=== PATIENT | male | born 1955 | race Caucasian/White ===

== ENCOUNTER → 2019-06-09 | Outpatient (CLI) | payer MEDICARE ==
--- NOTE | 2019-06-09 14:24 | CT ---
EXAMINATION TYPE: CT shoulder RT wo con DATE OF EXAM: 06/09/2019 COMPARISON: None HISTORY: Right shoulder pain. CT DLP: 480 mGycm Automated exposure control for dose reduction was used. FINDINGS: Severe arthropathy of the glenohumeral joint. There is hypertrophic change of the AC joint. Distance remains within normal limits but there is small spurs extending along the inferior margin of the acro mium and clavicle. There does appear to be some mass effect upon the musculotendinous junction and te ndon of the supraspinatus muscle. There is increased soft tissue along the medial margin of the gleno humeral joint with an area of low attenuation which may represent bursal fluid collection measuring 2 .3 cm. Recommend follow-up MRI. No evidence of acute fracture or dislocation. Benign-appearing bone cyst in the humeral head likely s econdary to chronic arthropathy. Scapula is otherwise intact. Visualized lung harkins clear. Hypertrop hic changes of the vertebral column. IMPRESSION: 1. Severe glenohumeral joint arthropathy with complete loss of joint space and suspected loss of tommie cular cartilage. 2. There is a soft tissue density which may represent a fluid collection along the medial margin of t he glenohumeral joint. This could represent a bursal fluid collection and could be correlated with MR I. 3. Mild hypertrophic change of the AC joint does appear to result in some mass effect upon the supras pinatus tendon and muscle correlate for impingement symptoms.
== END | disposition home or self-care (01) ==
LOC: RADCTMAIN 12:34
PROVIDERS: ATTEND Orthopaedic Surgery Sports Medicine
DX: M19.011 Primary osteoarthritis, right shoulder (principal); I10 Essential (primary) hypertension; E11.9 Type 2 diabetes mellitus without complications; Z87.891 Personal history of nicotine dependence

== ENCOUNTER → 2019-08-09 | Outpatient (CLI) | payer MEDICARE, BC ==
--- NOTE | 2019-08-10 09:22 | ECHOF ---
Referral Reason:R94.31 Abnormal EKG MEASUREMENTS -------- HEIGHT: 175.3 cm WEIGHT: 89.8 kg BP: RVIDd: 3.3 cm (< 3.3) IVSd: 1.8 cm (0.6 - 1.1) LVIDd: 3.9 cm (3.9 - 5.3) LVPWd: 1.5 cm (0.6 - 1.1) IVSs: 2.2 cm LVIDs: 2.8 cm LVPWs: 2.1 cm LAESV Index (A-L): 33.17 ml/m Ao Diam: 3.4 cm (2.0 - 3.7) AV Cusp: 1.8 cm (1.5 - 2.6) LA Diam: 3.7 cm (2.7 - 3.8) MV EXCURSION: 21.518 mm (> 18.000) MV EF SLOPE: 122 mm/s (70 - 150) EPSS: 0.5 cm MV E Daljit: 0.53 m/s MV DecT: 231 ms MV A Daljit: 0.74 m/s MV E/A Ratio: 0.71 RAP: 5.00 mmHg RVSP: 32.45 mmHg FINDINGS -------- Sinus rhythm. This was a technically adequate study. The left ventricular size is normal. There is moderate concentric left ventricular hypertrophy. O verall left ventricular systolic function is low-normal with, an EF between 50 - 55 %. The diastoli c filling pattern is normal for the age of the patient 6.87. The right ventricle is normal in size. LA is midly dilated 29-33ml/m2. The right atrial size is normal. Interatrial and interventricular septum intact. The aortic valve is trileaflet and appears structurally normal. There is no evidence of aortic regu rgitation. The aortic pressure half-time by doppler is {AR PHT}. Mild mitral regurgitation is present. Mild tricuspid regurgitation present. There is borderline pulmonary artery hypertension. The righ t ventricular systolic pressure, as measured by Doppler, is 32.45mmHg. There is no pulmonic regurgitation present. The aortic root size is normal. Normal inferior vena cava with normal inspiratory collapse consistent with estimated right atrial pre ssure of 5 mmHg. There is no pericardial effusion. CONCLUSIONS -------- 1. Sinus rhythm. 2. This was a technically adequate study. 3. The left ventricular size is normal. 4. There is moderate concentric left ventricular hypertrophy. 5. Overall left ventricular systolic function is low-normal with, an EF between 50 - 55 %. 6. The diastolic filling pattern is normal for the age of the patient 6.87 7. The right ventricle is normal in size. 8. LA is midly dilated 29-33ml/m2. 9. The right atrial size is normal. 10. Interatrial and interventricular septum intact. 11. The aortic valve is trileaflet and appears structurally normal. 12. There is no evidence of aortic regurgitation. 13. The aortic pressure half-time by doppler is {AR PHT}. 14. Mild mitral regurgitation is present. 15. Mild tricuspid regurgitation present. 16. There is borderline pulmonary artery hypertension. 17. The right ventricular systolic pressure, as measured by Doppler, is 32.45mmHg. 18. There is no pulmonic regurgitation present. 19. The aortic root size is normal. 20. Normal inferior vena cava with normal inspiratory collapse consistent with estimated right atrial pressure of 5 mmHg. 21. There is no pericardial effusion. PILLOWCASE SEWER: Hillary Hernandez [facility]
== END | disposition home or self-care (01) ==
LOC: RADECHMAIN 14:40
PROVIDERS: ATTEND Nurse Practitioner Family
DX: I08.1 Rheumatic disorders of both mitral and tricuspid valves (principal); I27.21 Secondary pulmonary arterial hypertension
CPT/HCPCS: 93306

== ENCOUNTER 2019-08-17 11:00 | Inpatient (IN) | payer MEDICARE, BC ==
[2019-08-15 13:10] VITALS: BMI 28.9
[~2019-08-17 11:00] MED LIST: ACETAMINOPHEN TAB 500 MG TAB PO ONE; CLINDAMYCIN 900 MG in DEXTROSE 5% IN WATER 50 ML IVPB ONE; DEXAMETHASONE SOD PHOSPHATE 10 MG/ML 1 ML VIAL IV ONE; GABAPENTIN 300 MG CAP PO ONE; HYDROmorphone 0.5 MG/0.5 ML SYRINGE IVP PRN; MIDAZOLAM 2 MG/2 ML VIAL IV PRN; ONDANSETRON 4 MG/2 ML VIAL IVP ONE; TRANEXAMIC ACID 1,000 MG in SODIUM CHLORIDE 0.9% 100 ML IVPB ONE
[2019-08-17] MEDS ORDERED: diphenhydrAMINE 25 MG CAP PO PRN (13:03)
[2019-08-17] MEDS ORDERED: TEMAZEPAM 15 MG CAP PO PRN (13:03)
[2019-08-17] MEDS ORDERED: HYDROmorphone 0.5 MG/0.5 ML SYRINGE IVP PRN ×2 (13:03)
[2019-08-17] MEDS ORDERED: hydrOXYzine PAMOATE 25 MG CAP PO PRN (13:03)
[2019-08-17] MEDS ORDERED: ONDANSETRON 4 MG/2 ML VIAL IVP PRN (13:03)
[2019-08-17] MEDS ORDERED: METOCLOPRAMIDE 5 MG/ML 2 ML VIAL IVP PRN (13:03)
[2019-08-17] MEDS ORDERED: PROCHLORPERAZINE SUPPOSITORY 25 MG SUPP RECTAL PRN (13:03)
[2019-08-17] MEDS ORDERED: SENNOSIDES-DOCUSATE SODIUM 1 EACH TAB PO PRN (13:03)
[2019-08-17] MEDS ORDERED: HYDROcodone/APAP 7.5-325MG 1 EACH TAB PO PRN (13:07)
[2019-08-17] MEDS ORDERED: LIDOCAINE 1% 20 ML VIAL (10MG/ML) FOR IV START INTRADERMA ONE (14:03)
[2019-08-17] MEDS: LACTATED RINGERS 1,000 ML IV SCH ×2 (14:03→21:01)
[2019-08-17 14:20] LABS: Glucose,Whole Blood 115 mg/dL (75-99)
[2019-08-17] MEDS ORDERED: fentaNYL (PF) 50 MCG/ML 2 ML AMP IV ONE (14:23)
[2019-08-17] MEDS ORDERED: MIDAZOLAM 2 MG/2 ML VIAL IV ONE (14:23)
[2019-08-17] MEDS ORDERED: DEXAMETHASONE SOD PHOSPHATE 4 MG/ML 1 ML VIAL ONE (15:17)
[2019-08-17] MEDS ORDERED: ROPIVACAINE 5 MG/ML 30 ML VIAL ONE (15:17)
[2019-08-17] MEDS ORDERED: MIDAZOLAM 2 MG/2 ML VIAL ONE (15:17)
[2019-08-17] MEDS ORDERED: NEOSTIGMINE 1 MG/ML 10 ML VIAL ONE (15:17)
[2019-08-17] MEDS ORDERED: PROPOFOL 10 MG/ML 20 ML VIAL IV ONE (15:17)
[2019-08-17] MEDS ORDERED: ROCURONIUM BROMIDE 10 MG/ML 10 ML VIAL IV ONE (15:17)
[2019-08-17] MEDS ORDERED: GLYCOPYRROLATE 0.2 MG/ML 2 ML VIAL ONE (15:17)
[2019-08-17] MEDS ORDERED: ePHEDrine SULFATE/0.9% NACL/PF 50 MG/5 ML SYRINGE IV ONE (15:17)
[2019-08-17] MEDS ORDERED: SUCCINYLCHOLINE CHLORIDE 100 MG/5 ML SYR IV ONE (15:17)
[2019-08-17] MEDS ORDERED: fentaNYL (PF) 50 MCG/ML 2 ML AMP ONE (15:17)
[2019-08-17] MEDS ORDERED: LIDOCAINE 1% INJ 10MG/ML (20 ML MDV) ONE (15:17)
[2019-08-17] MEDS ORDERED: PHENYLEPHRINE-0.9% NACL SYG 1 MG/10 ML SYRINGE ONE (15:17)
[2019-08-17] MEDS ORDERED: SODIUM CHLORIDE 0.9% 100 ML with ceFAZolin 2,000 MG IV ONE ×2 (15:25)
[2019-08-17] MEDS ORDERED: LACTATED RINGERS 1,000 ML IV ONE (15:55)
[2019-08-17] MEDS ORDERED: VANCOMYCIN 1,000 MG VIAL MISCELLANE ONE ×2 (16:41→17:02)
[2019-08-17 18:00] LABS: Glucose,Whole Blood 173 mg/dL (75-99)
--- NOTE | 2019-08-17 18:23 | P.ANPRN ---
Procedure Note - Anesthesia - Nerve Block Performed Right Interscalene Single Time Out Performed: Yes Date of Procedure: 08/17/19 Procedure Start Time: 14:25 Procedure Stop Time: 14:34 Location of Patient: PreOp Indication: Acute Post-Operative Pain, Requested by Surgeon Specifically requested for management of pain by DrJuju: Elfego Tavarez Sedation Type: Sedate with meaningful contact maintained Preparation: Sterile Prep Position: Supine Catheter: None Needle Types: Pajunk Needle Gauge: 21 Ultrasound used to visualize needle placement: Yes Ultrasound used to observe medication spread: Yes Injectate: 0.5% Ropivacaine (see comment for volume) (20 cc + decadron 4mg) Blood Aspirated: No Pain Paresthesia on Injection Noted: No Resistance on Injection: Normal Image Stored and Saved: Yes Events: Uneventful and Well Tolerated
--- NOTE | 2019-08-17 18:51 | XR ---
EXAMINATION TYPE: XR shoulder limited RT DATE OF EXAM: 08/17/2019 COMPARISON: NONE HISTORY: Postop TECHNIQUE: Single view FINDINGS: There is a right shoulder prosthesis. Components are in anatomic position. IMPRESSION: There is some mild atelectasis at the right lung base. No complicating process seen of th e shoulder prosthesis..
[2019-08-17 21:49] LABS: Glucose,Whole Blood 179 mg/dL (75-99)
[2019-08-17] MEDS: PARoxetine 10 MG TAB PO SCH (22:48)
[2019-08-17] MEDS: DOXYCYCLINE 100 MG CAP PO SCH (22:48)
--- NOTE | 2019-08-18 | OP ---
OPERATIVE REPORT DATE OF PROCEDURE: 08/17/2019 SURGEON: Elfego Tavarez M.D. MIRROR POLISHER: Henry REYES. PREOP DIAGNOSIS: Right shoulder arthritis. POSTOP DIAGNOSIS: Right shoulder arthritis. OPERATION PERFORMED: Right total shoulder arthroplasty. ANESTHESIA: General endotracheal. ESTIMATED BLOOD LOSS: Was 300 mL. DRAINS: One deep drain. COMPLICATIONS: None apparent. DISPOSITION: Postanesthesia care unit. INDICATIONS: Mr. Rico is a very pleasant 64-year-old male with longstanding right shoulder pain. Workup including x-rays revealed advanced osteoarthrosis of the right shoulder. At this point, it was felt he has failed conservative management and he would like to proceed with operative intervention. The risks of procedure were discussed in detail. These risks include, but are not limited to risk of infection, nerve damage, bleeding, pain and instability in the shoulder, loosening of the implants and deep infection. There is also risk of deep vein thrombosis which could lead to fatal pulmonary embolism. The patient understood the risks. All his questions with regard to the procedure were answered to his satisfaction. Appropriate informed consent was obtained. DESCRIPTION OF PROCEDURE: The patient identified in preoperative holding area. Surgical sites marked by both the patient and myself. He was given 2 g of Ancef IV for prophylactic purposes. He was then transferred to the operative suite. He was placed supine on the operative table. General anesthetic was then administered, dosed per the anesthesia without apparent complication. Examination under anesthesia of the right shoulder was then performed. He had elevation 140 degrees. External rotation at the side was to 30 degrees. The patient was then placed into the beach chair position well-padded in preparation for surgery. Great care was taken to ensure the cervical spine is in neutral alignment well-padded maintained weight throughout the operative case. The care was also taken to ensure that his legs were appropriately padded as well. The patient's right upper extremity was then prepped and draped in usual sterile fashion. Standard surgical pause undertaken to ensure the we were operating the correct site and that appropriate preop antibiotics were given. All staff in the room were in agreement we proceeded. The acromion, AC joint, clavicle and coracoid were marked with a surgical pen. A planned incision starting at the level of the clavicle and extending distally over the deltopectoral interval approximately 1 cm lateral to the coracoid was marked with surgical pen. The incision was then made, with a 10 blade scalpel. Dissection carried down sharply to the deltoid fascia. The deltopectoral interval was identified at the level of the clavicle. A small band retractor was then placed onto the proximal deltoid. Then released the deltoid fascia on the lateral aspect of the cephalic vein. The vein was left in its bed medially. The cephalic vein was protected throughout the entire case. I then identified the clavipectoral fascia. Incised proximally at the level of the coracoacromial ligament. The coracoacromial ligament was then left intact. I then used my finger to spread the interval between the conjoined tendon and the subscapularis. I felt for the axillary nerve which was readily palpable. I then cleared the subacromial and subdeltoid spaces of bursal and scar tissue. I then utilized a Gil retractor to hold the deltoid and expose the humeral head. I then proceeded to release the subscapularis and the anterior inferior shoulder capsule. The rotator cuff was inspected. It was found to be intact. The rotator interval was then identified. The course of the biceps tendon was also identified. I then released the rotator interval. Release at the base of the coracoid and then out laterally. The subscapularis and capsule released intratendinously. The subscapularis and capsule release extended distally in a lazy-S fashion approximately 1 cm medial to the biceps tendon. I then continued to release the capsule along the inferior neck in a vertical fashion to about the 6 o'clock position. Great care was taken to ensure the capsule was always visualized. It was released to avoid injuring the axillary nerve. I then brought the [place] honing machine operator semiautomatic with the arm externally rotated and abducted. I continued to release the end capsule inferomedially to the 4 o'clock position. The inferior osteophytes were now removed as well. This was done with a rongeur. I then proceed with the preparation of the proximal humerus. I removed all the goat's cote osteophytes. I then removed the subchondral plate from the superior aspect of the humeral head utilizing a large rongeur. I then used the starting reamer to gain access to the humeral canal. This was approximately 1 cm medial to the rotator cuff insertion and 1 cm posterior to the bicipital groove. I then prepared the humeral canal with hand reaming. Started with a 6 mm reamer and progressed incrementally until firm resistance was encountered at 14 mm. The reamer handle was then left in place and then I utilized a humeral resection guide set at 30 degrees of retrotorsion. The cutting block was set approximately 1-2 mm above the insertion of the rotator cuff. I proceeded to then osteotomize the humeral head with an oscillating saw. I removed the resection guide and then completed the osteotomy. I then proceeded with trial stem placement. I started with a size 8 broach and incrementally increased up to a 14 mm broach. This was also placed in 30 degrees of retrotorsion. The 14 mm trial stem was then left in place. I then proceeded with trial reduction. Started with a 46 x 18 mm head. This seemed to fit very nicely. The head fit opposite the glenoid. The rotator cuff was not tented. The interval internal rotation was to 90 degrees. External elevation was 150 degrees and translation was 1/2 of the head in neutral rotation and 1/4 of the head inferiorly in 15-20 degrees of abduction. I then removed the trial head. The stem was left in place to protect the proximal humerus. I then proceeded with exposure of the glenoid. At this point, I did release the biceps tendon. This was tenotomized at the level of the superior labrum. A bone hook was then used to pull the humerus out laterally. I inspected the joint for any loose bodies. There were none. The condition of the cuff was also again inspected. It was in excellent condition. The Bhattman retractor was then placed on the posterior glenoid rim. The arm was placed in approximately 70-80 degrees of abduction and in slight flexion on a Cheatham stand. I then proceeded with the hypertrophic labrum to definitively identify the actual glenoid. I then selected the size of the glenoid. A large size glenoid seemed to fit very nicely. I then utilized the starting drill to make the centering hole. I then proceeded to ream the glenoid fossa. This was done with a large size reamer. The reaming was taken down just to paprika sign. Great care was done to do minimal reaming as possible as to preserve as much of subchondral bone as possible. I then proceeded to place the glenoid drill holes. The peripheral drill holes were then placed and the center holes also drilled as well. I then placed a trial size large glenoid on. It fit very nicely on the glenoid. I then proceed with cementing. I [place] the wound and the bone. The drill holes were then packed with Ray-teextee sponges. Cement was then mixed on the back table by the psychiatric assistant. It was antibiotic impregnated cement. Drill holes were then packed with cement utilizing a 20 mL syringe. These were packed very tightly. A small amount of cement was also placed on the posterior aspect of the real glenoid component. I then inspected the real glenoid component into place. It was a Biomet large-sized pegged glenoid component with the Regenerex central PEG. Excess cement was removed utilizing a [place] elevator. Pressure was held on the glenoid component until the cement had hardened. I then removed the Bhattman retractor. We then proceeded with a humeral component trial reduction with the real glenoid. The 46 x 18 x 53 head was then placed back onto the stem. Again this was taken through a trial reduction. The head sat opposite the glenoid. The rotator cuff was not tented. Elevation was 150 degrees internal rotation to 90 degrees and on translation it was 1/2 of the head in neutral rotation, 1/4 of the head in 15 to 20 degrees of abduction. I then had the retail account representative open a 46 x 18 x 53 real head and a size 14 Biomet mini stem. The stem was then packed into the canal. The real head was then impacted onto the dry Romero taper of the stem. The shoulder was then reduced. I then proceeded with closure. The wound was again thoroughly irrigated with sterile saline solution with antibiotic added. The rotator interval was closed tightly with 0 Vicryl interrupted suture. The subscapularis and inferior anterior capsule were repaired with interrupted #2 FiberWire suture. Deep drain was then placed and brought out superiorly away from the incision. Again the wound was thoroughly irrigated. Approximately 500 mg of vancomycin powder was then placed deep. The deltopectoral interval was then closed with interrupted 0- Vicryl suture. The subcutaneous tissue was then again thoroughly irrigated. The remaining 500 mg of vancomycin powder was then placed subcutaneously. The subcutaneous tissue was closed with 2-0 Vicryl interrupted suture. The skin was closed with a running 3-0 Quill suture. Dermabond was then applied to the incision. Sterile compressive dressing was then applied. The patient's right upper extremity was placed into a shoulder immobilizer. All sponge and needle counts were deemed correct prior to closure. The patient tolerated procedure without apparent complication. Transferred recovery room in stable condition. MMODL / IJN: [id number] /
[2019-08-18] MEDS: LACTATED RINGERS 1,000 ML IV SCH ×3 (00:48→17:28)
[2019-08-18 07:12] LABS: Glucose,Whole Blood 132 mg/dL (75-99)
[2019-08-18] MEDS: LISINOPRIL 10 MG TAB PO SCH (09:05)
[2019-08-18] MEDS: DOXYCYCLINE 100 MG CAP PO SCH ×2 (09:05→22:40)
[2019-08-18] MEDS: HYDROCHLOROTHIAZIDE 25 MG TAB PO SCH (09:05)
[2019-08-18] MEDS: HYDROcodone/APAP 7.5-325MG 1 EACH TAB PO PRN ×3 (09:05→21:56)
[2019-08-18] MEDS: GLIMEPIRIDE 2 MG TAB PO SCH (09:19)
--- NOTE | 2019-08-18 10:23 | P.PN ---
Subjective Progress Note Date: 08/18/19 Principal diagnosis: S/P Right Total Shoulder Arthroplasty Patient is seen at bedside this morning. He is postop day #1 from right total shoulder arthroplasty. He has pain at the surgical site as expected but denies any new complaints. He denies numbness, tingling or calf pain. Review of systems is negative for fever, chills, chest pain, shortness of breath or other Objective - Vital Signs Vital signs: Vital Signs Temp 98.2 F 08/18/19 07:00 Pulse 104 H 08/18/19 07:00 Resp 18 08/18/19 07:00 BP 139/82 08/18/19 07:00 Pulse Ox 95 08/18/19 07:00 Intake & Output 08/17/19 08/18/19 08/18/19 18:59 06:59 18:59 Intake Total 1800 300 Output Total 300 960 Balance 1500 -960 300 Weight 89.81 kg 89.81 kg Intake: IV 1800 Oral 300 Output: Drainage 110 Right Shoulder 110 Urine 850 Estimated Blood Loss 300 Other: Voiding Method Toilet # Voids 2 - Exam Inspection reveals a benign surgical wound. There is no active bleeding or drainage. Hemovac is intact. Neurovascular status is intact throughout the upper extremity with motor and sensation fully intact. Calves are soft and nontender. 2+ radial pulse and less than 2 second cap refill is present. - Constitutional General appearance: Present: no acute distress - Labs Labs: Abnormal Lab Results - Last 24 Hours (Table) 08/17/19 08/17/19 08/17/19 Range/Units 14:01 17:56 21:38 POC Glucose (mg/dL) 115 H 173 H 179 H (75-99) mg/dL 08/18/19 Range/Units 07:00 POC Glucose (mg/dL) 132 H (75-99) mg/dL Assessment and Plan (1) Status post total shoulder arthroplasty Narrative/Plan: Hemovac was removed without complication and new light dressing placed. He will continue with routine postop orthopedic protocol including pain management, wound care, DVT prophylaxis and medical management. Expect that he will transfer to home tomorrow. Current Visit: Yes Status: Acute Priority: Medium Code(s): Z96.619 - PRESENCE OF UNSPECIFIED ARTIFICIAL SHOULDER JOINT SNOMED Code(s): 823846582 Time with Patient: Less than 30
[2019-08-18 11:48] LABS: Basophils % (A) 0 %; Eosinophils # (A) 0.1 k/uL (0-0.7); Eosinophils % (A) 1 %; HCT 40.5 % (39.0-53.0); HGB 13.9 gm/dL (13.0-17.5); Lymphocytes # (A) 1.7 k/uL (1.0-4.8); Lymphocytes % (A) 14 %; MCH 33.1 pg (25.0-35.0); MCHC 34.3 g/dL (31.0-37.0); MCV 96.5 fL (80.0-100.0); Mean Platelet Volume 6.9; Monocytes # (A) 0.8 k/uL (0-1.0); Monocytes % (A) 7 %; Neutrophils # (A) 9.3 k/uL (1.3-7.7); Neutrophils % (A) 77 %; Platelet Count 258 k/uL (150-450); RDW 11.9 % (11.5-15.5); WBC 12.1 k/uL (3.8-10.6)
[2019-08-18 11:50] LABS: Glucose,Whole Blood 132 mg/dL (75-99)
--- NOTE | 2019-08-18 16:30 | P.CONS ---
History of Present Illness - Reason for Consult Consult date: 08/18/19 hypertension Requesting physician: Elfego Tavarez - Chief Complaint shoulder pain - History of Present Illness is a 64-year-old male past medical history of hypertension, diabetes, dyslipidemia, and varicose veins who presented for elective right total shoulder arthroplasty. He had a procedure on 08/17/19 without any immediate postoperative complications. Patient seen and examined at bedside. He has been having right shoulder pain for the last 3 years. He has tried conservative management with corticosteroid injections. Pain was becoming so severe he could no longer sleeps at night and he therefore decided on operative management. He denies any recent cough, cold, fever, flu, nausea, or vomiting. He states that his blood sugars have been well controlled at home.last hemoglobin A1c was 06/28/19 was 5.8. He states that his pain is currently being managed appropriately, he denies any dizziness, nausea, vomiting, or lightheadedness. Review of Systems Pertinent positives and negatives as discussed in HPI, a complete review of systems was performed and all other systems are negative. Past Medical History Past Medical History: Diabetes Mellitus, Hearing Disorder / Deafness, Hyperlipidemia, Hypertension, Osteoarthritis (OA) Additional Past Medical History / Comment(s): VARICOSE VEINS (WEARS COMPRESSION STOCKINGS), ARTHRITIS THUMBS, SHOULDERS & HIP., TINNITUS History of Any Multi-Drug Resistant Organisms: None Reported Past Surgical History: Hernia Repair, Orthopedic Surgery Additional Past Surgical History / Comment(s): UMBILICAL HERNIA, RIGHT ACHILLES , LEFT HIP (UNKNOWN TYPE OF SURGERY) Past Anesthesia/Blood Transfusion Reactions: No Reported Reaction Past Psychological History: Anxiety, Depression Smoking Status: Former smoker Past Alcohol Use History: Daily Additional Past Alcohol Use History / Comment(s): QUIT SMOKING 2013, SMOKED ON AND OFF,. DRINKS 3-4 OZ OF LIQUOR DAILY. Past Drug Use History: Marijuana Additional Drug Use History / Comment(s): OCCASIONAL MARIJUANA USE - Past Family History Mother Family Medical History: Cancer Additional Family Medical History / Comment(s): LEUKEMIA, HEPATITIS C Father Family Medical History: Hypertension, Pneumonia Medications and Allergies Home Medications Medication Instructions Recorded Confirmed Type Atorvastatin [Lipitor] 80 mg PO HS 08/15/19 08/17/19 History Glimepiride [Amaryl] 2 mg PO [id number]-[id number] 08/15/19 08/17/19 History Hydrochlorothiazide [Hydrodiuril] 25 mg PO DAILY 08/15/19 08/17/19 History Ibuprofen [Motrin] 800 mg PO BID 08/15/19 08/17/19 History Lisinopril [Zestril] 10 mg PO DAILY 08/15/19 08/17/19 History PARoxetine HCL [Paxil] 30 mg PO HS 08/15/19 08/17/19 History Allergies Allergy/AdvReac Type Severity Reaction Status Date / Time metformin Allergy Unknown Diarrhea Verified 08/17/19 13:34 Penicillins Allergy Unknown Unknown Verified 08/17/19 13:34 Childhood Physical Exam Osteopathic Statement: *. No significant issues noted on an osteopathic structural exam other than those noted in the History and Physical/Consult. Vitals: Vital Signs Temp Pulse Pulse Resp BP BP Pulse Ox 08/18/19 14:50 98.0 F 82 17 129/80 95 08/18/19 07:00 98.2 F 104 H 18 139/82 95 08/18/19 04:40 16 08/18/19 02:13 98 F 46 L 16 150/75 98 08/18/19 00:48 16 08/17/19 20:00 16 08/17/19 18:15 79 16 125/74 96 08/17/19 18:00 92 14 145/77 96 08/17/19 17:45 103 H 16 128/70 92 L 08/17/19 17:39 97.0 F L 78 16 140/72 98 Intake and Output 08/18/19 08/18/19 08/18/19 06:59 14:59 22:59 Intake Total 300 Output Total 960 Balance -960 300 Intake: Oral 300 Output: Drainage 110 Right Shoulder 110 Urine 850 Other: Voiding Method Toilet # Voids 2 General: non toxic, no distress, appears at stated age, normal weight Derm: no unusual rashes/lesions no unusual ecchymoses, warm, dry Head: atraumatic, normocephalic, symmetric Eyes: EOMI, no lid lag, anicteric sclera, pupils equal round reactive to light ENT: Nose and ears atraumatic, no thrush, no pharyngeal erythema Neck: No thyromegaly, no cervical lymphadenopathy, trachea midline, supple Mouth: no lip lesion, mucus membranes moist Cardiovascular: S1S2 reg, no murmur, positive posterior tibial pulse bilateral, no edema, capillary refill less than 2 seconds Lungs: CTA bilateral, no rhonchi, no rales , no accessory muscle use Abdominal: soft, nontender to palpation, no guarding, no appreciable organomegaly, normal bowel sounds Ext: Right shoulder with dressing in place, no gross muscle atrophy, muscle strength 5 out of 5 in b/l LE extremities grossly, no contractures, Neuro: CN II-XI grossly intact, light touch intact all 4 extremities, finger to nose within normal limits, Psych: Alert, oriented, appropriate affect Results CBC & Chem 7: 08/18/19 11:31 Labs: Abnormal Lab Results - Last 24 Hours (Table) 08/17/19 08/17/19 08/18/19 Range/Units 17:56 21:38 07:00 WBC (3.8-10.6) k/uL RBC (4.30-5.90) m/uL Neutrophils # (1.3-7.7) k/uL POC Glucose (mg/dL) 173 H 179 H 132 H (75-99) mg/dL 08/18/19 08/18/19 Range/Units 11:31 11:39 WBC 12.1 H (3.8-10.6) k/uL RBC 4.20 L (4.30-5.90) m/uL Neutrophils # 9.3 H (1.3-7.7) k/uL POC Glucose (mg/dL) 132 H (75-99) mg/dL Assessment and Plan Assessment: Patient is a 64-year-old male status post right total shoulder arthroplasty Diabetes - A1C 5.6 06/28/10 - amaryl - follow BS if 2 >180 then start SSI Dyslipidemia - statin Hypertension - follow MARTHA - HCTZ, lisinopril, Thank you for allowing us to participate in the care of this pleasant patient. Do not hesitate to contact us with questions. Someone can be reached from the [facility] hospitalist group all hours of the day at [phone] or via [employer]
[2019-08-18 16:54] LABS: Glucose,Whole Blood 103 mg/dL (75-99)
[2019-08-18] MEDS: HYDROmorphone 0.5 MG/0.5 ML SYRINGE IVP PRN ×2 (18:06→22:49)
[2019-08-18 20:20] LABS: Glucose,Whole Blood 157 mg/dL (75-99)
[2019-08-18] MEDS ORDERED: ATORVASTATIN 80 MG TAB PO SCH (21:00)
[2019-08-18] MEDS: PARoxetine 10 MG TAB PO SCH (21:56)
[2019-08-19 07:29] LABS: Glucose,Whole Blood 118 mg/dL (75-99)
[2019-08-19 07:36] VITALS: BP 130/78; PULSE 70; RESP 17; TEMP 98.2
[2019-08-19] MEDS: LACTATED RINGERS 1,000 ML IV SCH ×2 (08:45→08:50)
[2019-08-19] MEDS: GLIMEPIRIDE 2 MG TAB PO SCH (08:47)
[2019-08-19] MEDS: LISINOPRIL 10 MG TAB PO SCH (08:47)
[2019-08-19] MEDS: HYDROCHLOROTHIAZIDE 25 MG TAB PO SCH (08:47)
[2019-08-19] MEDS: HYDROcodone/APAP 7.5-325MG 1 EACH TAB PO PRN (08:47)
[2019-08-19] MEDS: DOXYCYCLINE 100 MG CAP PO SCH (08:50)
--- NOTE | 2019-08-19 08:55 | P.DS ---
Providers Date of admission: 08/17/19 12:24 Expected date of discharge: 08/19/19 Attending physician: Elfego Tavarez Consults: 08/17/19 13:03 Consult Physician Routine Consulting Provider: Kathy Nuno Consult Reason/Comments: post op medical management Do you want consulting provider notified?: Yes Primary care physician: Vandana Dawkins - Discharge Diagnosis(es) (1) Status post total shoulder arthroplasty Patient was admitted to the OR on 08/17/2019 to undergo a right total shoulder arthroplasty. He had failed conservative measures as an outpatient and desired to proceed with elective surgery after given informed consent. He underwent the above procedure which he tolerated well without complication. Postoperative hospital course has remained without complication. On day of discharge he is afebrile, vital signs stable, labs within acceptable ranges, tolerating by mouth meds and diet, voiding without difficulty, positive flatus, denies abdominal pain or calf pain, pain is controlled on oral pain medication and has no new complaints. Wound is benign, neurovascular status is intact, calf is soft and nontender, abdomen soft and nontender. Review of systems is negative for numbness, tingling, fever, chills, chest pain, shortness of breath, nausea, vomiting, dizziness, headaches, slurred speech or other. Current Visit: Yes Status: Acute Priority: Medium Procedures: Right TSA Patient Condition at Discharge: Good Plan - Discharge Summary Discharge Rx Participant: Yes New Discharge Prescriptions: New Docusate [Colace] 100 mg PO BID #60 capsule Doxycycline Hyclate 100 mg PO BID #10 tab HYDROcodone/APAP 7.5-325MG [[place] 7.5-325] 1 - 2 each PO Q6HR PRN #56 tab PRN Reason: Pain oxyCODONE ER [OxyCONTIN] 10 mg PO Q12HR 5 Days #10 tab No Action PARoxetine HCL [Paxil] 30 mg PO HS Lisinopril [Zestril] 10 mg PO DAILY Glimepiride [Amaryl] 2 mg PO AC-BRKFST Atorvastatin [Lipitor] 80 mg PO HS Hydrochlorothiazide [Hydrodiuril] 25 mg PO DAILY Ibuprofen [Motrin] 800 mg PO BID Discharge Medication List Atorvastatin [Lipitor] 80 mg PO HS 08/15/19 [History] Glimepiride [Amaryl] 2 mg PO AC-BRKFST 08/15/19 [History] Hydrochlorothiazide [Hydrodiuril] 25 mg PO DAILY 08/15/19 [History] Ibuprofen [Motrin] 800 mg PO BID 08/15/19 [History] Lisinopril [Zestril] 10 mg PO DAILY 08/15/19 [History] PARoxetine HCL [Paxil] 30 mg PO HS 08/15/19 [History] Docusate [Colace] 100 mg PO BID #60 capsule 08/19/19 [Rx] Doxycycline Hyclate 100 mg PO BID #10 tab 08/19/19 [Rx] HYDROcodone/APAP 7.5-325MG [[place] 7.5-325] 1 - 2 each PO Q6HR PRN #56 tab 08/19/19 [Rx] oxyCODONE ER [OxyCONTIN] 10 mg PO Q12HR 5 Days #10 tab 08/19/19 [Rx] Follow up Appointment(s)/Referral(s): Elfego Tavarez MD [STAFF PHYSICIAN] - 08/29/19 2:20 pm Activity/Diet/Wound Care/Special Instructions: Keep wound clean and dry Take meds as directed Follow-up with Dr. Tavarez in office maintain sling, non weight bearing right upper extremity May shower in 3 days if no bleeding Discharge Disposition: HOME SELF-CARE
[2019-08-19] MEDS ORDERED: oxyCODONE ER 10 MG TAB.ER.12H PO SCH (09:00)
[2019-08-19 12:01] LABS: Glucose,Whole Blood 133 mg/dL (75-99)
== END 2019-08-19 16:21 | disposition home or self-care (01) | DRG 483 ==
LOC: 2ORMAIN 12:24 → 4SSUR 17:30
PROVIDERS: ADMIT Orthopaedic Surgery Sports Medicine; ATTEND Orthopaedic Surgery Sports Medicine
PROC: 0RRJ0JZ Replacement of Right Shoulder Joint with Synthetic Substitute, Open Approach (ICD-10-PCS; principal; 2019-08-17 14:00)
DX: M19.011 Primary osteoarthritis, right shoulder (principal); E11.9 Type 2 diabetes mellitus without complications; E78.5 Hyperlipidemia, unspecified; H91.90 Unspecified hearing loss, unspecified ear; I10 Essential (primary) hypertension; F32.9 Major depressive disorder, single episode, unspecified; F41.9 Anxiety disorder, unspecified; Z79.84 Long term (current) use of oral hypoglycemic drugs; Z80.6 Family history of leukemia; Z79.899 Other long term (current) drug therapy; Z82.49 Family history of ischemic heart disease and other diseases of the circulatory system; Z87.891 Personal history of nicotine dependence; Z88.0 Allergy status to penicillin; Z88.8 Allergy status to other drugs, medicaments and biological substances
CPT/HCPCS: 64415; 76942; 85025; 88300

== ENCOUNTER → 2019-09-01 | Outpatient (CLI) | payer MEDICARE, BC ==
--- NOTE | 2019-09-01 15:56 | XR ---
EXAMINATION TYPE: XR facial bones complete DATE OF EXAM: 09/01/2019 COMPARISON: NONE HISTORY: 64-year-old male with facial pain and bruising to the left orbit from fall TECHNIQUE: 3 views FINDINGS: Rightward nasal septal deviation. There is bony asymmetry along the superior aspect of the left maxil josiah sinus/left orbital floor. Dental implants and dental amalgam. Mandible appears intact as do the nasal bone. IMPRESSION: 1. Some asymmetry along the floor of the left orbit on the Almaraz' view could be projectional. Orbita l floor fracture difficult to entirely exclude based on this finding. Consider facial bone CT to furt her evaluate. 2. Rightward nasal septal deviation.
== END | disposition home or self-care (01) ==
LOC: RADXRMAIN 15:02
PROVIDERS: ATTEND Family Medicine
DX: S02.30XA Fracture of orbital floor, unspecified side, initial encounter for closed fracture (principal); J34.2 Deviated nasal septum
CPT/HCPCS: 70150

== ENCOUNTER → 2019-09-05 | Outpatient (CLI) | payer MEDICARE, BC ==
--- NOTE | 2019-09-05 11:24 | CT ---
EXAMINATION TYPE: CT facial bones wo con DATE OF EXAM: 09/05/2019 COMPARISON: None HISTORY: 64-year-old male Epistaxis, left sided facial numbness and headaches after fall x1 week ago. TECHNIQUE: Contiguous axial scanning of the facial bones without IV contrast. Coronal reconstructions performed. CT DLP: 813.8 mGycm Automated exposure control for dose reduction was used. FINDINGS: Extensive dental amalgam artifact. Allowing for this limitation, mandible appears intact as do the TM Js. The zygomatic arches and pterygoid plates are intact. Rightward nasal septal deviation. Maxillary spine and nasal bones are intact. Globes appear symmetric and intact. However, there is a comminuted, large blowout fracture of the lef t orbital floor with fragments depressed by up to 1 cm into the superior aspect of the left maxillary sinus. Associated mild inflammation hemorrhage. Abnormal mucosal thickening and some mild hemorrhage within the left maxillary sinus. Mild mucosal th ickening right maxillary sinus. IMPRESSION: 1. Large comminuted blowout fracture left orbital floor with fragments depressed by up to 1 cm into t he superior aspect of the left maxillary sinus. Associated mild hemorrhagic material and mucosal thic kening in the left maxillary sinus. 2. No additional acute facial bone fracture identified.
--- NOTE | 2019-09-05 11:33 | CT ---
EXAMINATION TYPE: CT iac wo con DATE OF EXAM: 09/05/2019 COMPARISON: None HISTORY: 64-year-old male Epistaxis, left sided facial numbness and headaches after fall x1 week ago. TECHNIQUE: Contiguous axial scanning of the temporal bone without IV contrast. Coronal reconstruction s performed. CT DLP: 142.7 mGycm Automated exposure control for dose reduction was used. FINDINGS: Facial bones reported separately. Mastoid air cells and middle ear cavities are well pneumatized. The middle ear ossicles appear normal. No temporal bone fracture. Some mild bony exostoses along the external auditory canals on both sides. IMPRESSION: 1. NO TEMPORAL BONE FRACTURE. TMJ's ARE INTACT. NO ABNORMAL FLUID IN THE MIDDLE EAR CAVITIES OR MASTO ID AIR CELLS. 2. MILD BONY EXOSTOSES ALONG THE EXTERNAL AUDITORY CANALS PROBABLY SECONDARY TO CHRONIC IRRITATION.
== END | disposition home or self-care (01) ==
LOC: RADCTMAIN 10:46
PROVIDERS: ATTEND Nurse Practitioner Family
DX: S02.32XA Fracture of orbital floor, left side, initial encounter for closed fracture (principal); J34.89 Other specified disorders of nose and nasal sinuses; R04.0 Epistaxis
CPT/HCPCS: 70480; 70486

== ENCOUNTER → 2020-12-18 | Outpatient (CLI) | payer MEDICARE ==
--- NOTE | 2020-12-18 22:35 | CT ---
EXAMINATION TYPE: CT lumbar spine wo con DATE OF EXAM: 12/18/2020 5:48 PM COMPARISON: None. HISTORY: Radiculopathy, pain/tingling/numbness down LT leg x several months CT DLP: 1093.80 mGycm Automated exposure control for dose reduction was used. Unenhanced CT of the lumbar spine was performed. Bone and soft tissue window settings are submitted as well as coronal and sagittal reconstructions. There are 5 lumbar type vertebra identified. Lumbar spine shows slight grade 1 retrolisthesis L1 on L 2, L2 on L3, and L3 on L4. Vertebral body heights are maintained. Mild disc space narrowing L1-L2 and L2-L3 levels with mild to moderate anterior spurring. Additional mild to moderate multilevel anterio r and lateral spurring. Axial images at T12-L1 level appear within normal limits. Axial images at L1-L2 level show spondylolisthesis with mild broad disc bulge mildly effaces the ante rior thecal sac. Patent bilateral neural foramina. Axial images at L2-L3 level mild/moderate broad-based disc bulge mildly effacing the anterior thecal sac and patent bilateral neural foramina. Axial images at L3-L4 level mild facet arthropathy bilaterally. There is moderate broad-based disc bu lge effacing the anterior thecal sac and causing mild bilateral neural foraminal narrowing. Axial images at the L4-L5 level show mild to moderate broad-based posterior disc protrusion and mild facet arthropathy bilaterally. There is mild effacement of anterior thecal sac and [id number] b ilateral anterior inferior neural foraminal narrowing. Axial images at the L5-S1 level show advanced facet arthropathy bilaterally. Spinal canal is preserve d. There is moderate broad-based posterior disc protrusion. There is fairly severe bilateral neural f oraminal narrowing encroaching on both L5 nerves left sagittal image 47 and right sagittal image 31 c orrelating with axial image 61. Mild to moderate calcified plaque of the abdominal aorta extends into branch vessels. IMPRESSION: Multilevel spondylolisthesis and degenerative changes as detailed above. Most prominent f indings noted L5-S1 level. Bilateral L5 nerve encroachment felt present.
== END | disposition home or self-care (01) ==
LOC: RADCTMAIN 17:26
PROVIDERS: ATTEND Physical Medicine & Rehabilitation
DX: M47.26 Other spondylosis with radiculopathy, lumbar region (principal)
CPT/HCPCS: 72131

== ENCOUNTER → 2021-05-08 | Outpatient (CLI) | payer MEDICARE ==
--- NOTE | 2021-05-08 17:11 | CONS ---
CONSULTATION DATE OF SERVICE: 05/08/2021 66-year-old gentleman has been evaluated in [facility] for possible obstructive sleep apnea-hypopnea syndrome. HISTORY OF PRESENT ILLNESS/ SLEEP-WAKE EVALUATION: SLEEP SCHEDULE: The patient usual sleep schedule from 08:30/9 p.m. until 7:30 a.m. FALLING ASLEEP: He does have problems with falling asleep although no TV in bedroom. DURING SLEEP: He sleeps in different position. He does snore and he wakes up from sleep multiple times with 1-2 episodes of nocturia. Positive history of grinding teeth and sweating during sleep. DURING THE DAY/SLEEP WAKE EVALUATION: In the morning the patient wakes up tired, has difficulties to pay attention, falling asleep during the day, worries about his sleep. [place] Sleepiness Scale significantly increased to 12. No history of hypnagogic hallucinations, sleep paralysis or cataplexy. PAST MEDICAL HISTORY: Positive for hypertension, hyperlipidemia, anxiety, depression, diabetes mellitus. PAST SURGICAL HISTORY: Total right shoulder replacement, left eye surgery. MEDICATIONS: Atorvastatin 80 mg once a day, lisinopril 10 mg once a day, hydrochlorothiazide 20 mg once a day, glimepiride 3 mg once a day, 30 mg once a day. SOCIAL HISTORY: Positive for smoking for about 20 years up to one and one 1/2 pack a day, quit 6 years ago. Alcohol consumption: None at the present time. FAMILY HISTORY: Positive for sleep apnea by his brother, loud snoring by his father. REVIEW OF SYSTEMS: Awakenings from sleep, sleepiness during the day. PHYSICAL EXAMINATION: GENERAL: gentleman without distress. BP 138/84, HR about 100, RR 15, height 5 feet 8-1/2 inches, weight 211 pounds, body mass index 31.6, temperature 98. HEENT: PERRLA, EOMI. Oropharynx wide pillars. Normal position of soft palate. Mallampati 1-2. NECK is 17-1/2 inches in circumference. Neck: Supple, no JVD. Thyroid is not palpable. LUNGS: Clear to percussion and to auscultation. Good air exchange. No wheezing or rhonchi. HEART: S1, S2 regular. No murmurs, gallops, or rubs. ABDOMEN: Soft and nontender. Bowel sounds are present. No organomegaly appreciated. EXTREMITIES: No clubbing or cyanosis. OFFSET PLATEMAKER: Awake, alert, and oriented X3. Cranial nerves 2 to 7 intact. There is no fasciculation or atrophy. noted. No focal deficits observed. IMPRESSION: 1. Snoring multiple awakenings from sleep, excessive daytime sleepiness. [place] Sleepiness Scale increased to 12, wide neck 17-1/2 inches in circumference, obstructive sleep apnea-hypopnea syndrome. 2. Mild obesity, body mass index 31.6. 3. Hypertension. 4. Hyperlipidemia. 5. History of anxiety. 6. History of depression. 7. Diabetes mellitus. 8. Status post total right shoulder replacement. 9. Status post left eye surgery. PLAN: 1. Home sleep apnea test to check patient breathing during sleep. 2. CPAP/BiPAP titration if sleep study confirms obstructive sleep apnea-hypopnea syndrome. 3. Preferable position during sleep on the side. 4. No driving if patient feels any sleepiness. 5. I will see patient for follow up visit to explain results of testing and following plan. Thank you very much for referring this patient for consultation. Sincerely, Brandin Roca MD, PhD, FAASM Diplomat of [employer] Sleep Medicine Board of [place] [employer] Clinical Education Coordinator of [facility] [place] MMODL / MYRNAN: [id number] /
== END | disposition home or self-care (01) ==
LOC: SLEEP 13:31
PROVIDERS: ATTEND Internal Medicine
DX: G47.33 Obstructive sleep apnea (adult) (pediatric) (principal); E66.01 Morbid (severe) obesity due to excess calories; I10 Essential (primary) hypertension; E78.5 Hyperlipidemia, unspecified; E11.9 Type 2 diabetes mellitus without complications; Z96.611 Presence of right artificial shoulder joint; Z98.42 Cataract extraction status, left eye; Z68.31 Body mass index [BMI] 31.0-31.9, adult
CPT/HCPCS: 99211

== ENCOUNTER → 2021-05-15 | Outpatient (CLI) | payer MEDICARE ==
--- NOTE | 2021-05-15 07:57 | CTL ---
EXAMINATION TYPE: CT Low Dose Lung DATE OF EXAM ORDERED: 05/15/2021 HISTORY: Long-term tobacco use. Lung cancer screening CT DLP: [address] CTDI: 2.41 mGy Automated exposure control for dose reduction was used. SCREENING VISIT: Baseline COMPARISON: None TECHNIQUE: Low dose computed tomography scan was performed through the chest at 1 mm thick sections a nd reconstructed images in multiple planes at [address] DIAGNOSTIC QUALITY: Limited, but interpretable FINDINGS: LUNG NODULES: Present. There is 3.8 x 3.1 mm anterior right lower lobe nodule axial image 174. There is 4.3 x 3.7 mm lateral right lower lobe nodule axial image 208. There is 3.5 x 2.3 mm lateral right lower lobe nodule on axial image 213. Additional scattered small right upper lobe nodules, 3-4 are present under 5 mm. Less numerous scattered small left lung nodules. For reference is 3.7 x 3.1 mm left upper lobe nodule axial image 58. For reference is 24 x 2.3 mm lateral left basilar nodule axial image 258. LUNGS: COPD: Severity: None Fibrosis: Severity: None Lymph nodes: None Other findings: None RIGHT PLEURAL SPACE: Effusion: None Calcification: None Thickening: None Pneumothorax: None LEFT PLEURAL SPACE: Effusion: None Calcification: None Thickening: None Pneumothorax: None HEART: Heart Size: Normal Coronary calcification: None Pericardial effusion: None OTHER FINDINGS: Upper abdomen: None Bony thorax: There is S-shaped scoliosis with mild to moderate multilevel spurring Supraclavicular region: None Other: None IMPRESSION: Scattered small bilateral nodules. No greater than [address] LUNG RAD AND CT CHEST RECOMMENDATION: Lung-Rad 2 Benign Appearance or Behavior: Continue annual sc reening with LDCT in 12 months. S Modifier (other clinically significant findings): None
== END | disposition home or self-care (01) ==
LOC: RADCTMAIN 07:03
PROVIDERS: ATTEND Family Medicine
DX: Z12.2 Encounter for screening for malignant neoplasm of respiratory organs (principal); E04.1 Nontoxic single thyroid nodule; Z87.891 Personal history of nicotine dependence
CPT/HCPCS: 71271

== ENCOUNTER 2022-04-28 08:58 | Emergency (ER) | payer MEDICARE ==
[2022-04-28 09:04] VITALS: BP 153/96; PULSE 76; RESP 18; TEMP 98.3
[2022-04-28] MEDS ORDERED: methylPREDNISolone SOD SUCCI 125 MG/2 ML VIAL IM ONE (09:36)
--- NOTE | 2022-04-28 09:38 | ED ---
General Adult HPI - General Chief complaint: Skin/Abscess/Foreign Body Stated complaint: Rash/Allergic reaction Time Seen by Provider: 04/28/22 09:09 Source: patient, RN notes reviewed Mode of arrival: ambulatory Limitations: no limitations - History of Present Illness Initial comments: 67-year-old male presents emergency Department chief complaint rash. Patient states he is out gardening a few days ago developed rash on his extremities, face. Patient states. She states that was having the past states it feels very similar. Patient denies any difficulty breathing or difficulty swallowing. Patient states he did take some Benadryl last night which did help and he woke up around 2 AM. Patient denies any fevers or chills he states he had no new products otherwise. Patient offers no complaints. - Related Data Home Medications Medication Instructions Recorded Confirmed Atorvastatin [Lipitor] 80 mg PO HS 08/15/19 08/17/19 Glimepiride [Amaryl] 2 mg PO AC-BRKFST 08/15/19 08/17/19 Ibuprofen [Motrin] 800 mg PO BID 08/15/19 08/17/19 PARoxetine HCL [Paxil] 30 mg PO HS 08/15/19 08/17/19 hydroCHLOROthiazide [Hydrodiuril] 25 mg PO DAILY 08/15/19 08/17/19 lisinopriL [Zestril] 10 mg PO DAILY 08/15/19 08/17/19 Previous Rx's Medication Instructions Recorded Docusate [Colace] 100 mg PO BID #60 capsule 08/19/19 Doxycycline Hyclate 100 mg PO BID #10 tab 08/19/19 HYDROcodone/APAP 7.5-325MG [[place] 1 - 2 each PO Q6HR PRN #56 tab 08/19/19 7.5-325] oxyCODONE ER [OxyCONTIN] 10 mg PO Q12HR 5 Days #10 tab 08/19/19 predniSONE 10 mg PO DIRECTED #30 tab 04/28/22 Allergies Allergy/AdvReac Type Severity Reaction Status Date / Time metformin Allergy Unknown Diarrhea Verified 04/28/22 09:04 Penicillins Allergy Unknown Unknown Verified 04/28/22 09:04 Childhood Review of Systems ROS Statement: Those systems with pertinent positive or pertinent negative responses have been documented in the HPI. ROS Other: All systems not noted in ROS Statement are negative. Past Medical History Past Medical History: Diabetes Mellitus, Hearing Disorder / Deafness, Hyperlipidemia, Hypertension, Osteoarthritis (OA) Additional Past Medical History / Comment(s): VARICOSE VEINS (WEARS COMPRESSION STOCKINGS), ARTHRITIS THUMBS, SHOULDERS & HIP., TINNITUS History of Any Multi-Drug Resistant Organisms: None Reported Past Surgical History: Hernia Repair, Orthopedic Surgery Additional Past Surgical History / Comment(s): UMBILICAL HERNIA, RIGHT ACHILLES , LEFT HIP (UNKNOWN TYPE OF SURGERY) Past Anesthesia/Blood Transfusion Reactions: No Reported Reaction Past Psychological History: Anxiety, Depression Smoking Status: Former smoker Past Alcohol Use History: Daily Past Drug Use History: Marijuana - Past Family History Mother Family Medical History: Cancer Additional Family Medical History / Comment(s): LEUKEMIA, HEPATITIS C Father Family Medical History: Hypertension, Pneumonia General Exam Limitations: no limitations General appearance: alert, in no apparent distress Head exam: Present: atraumatic, normocephalic, normal inspection Eye exam: Present: periorbital swelling (Left) ENT exam: Present: normal exam, normal oropharynx, mucous membranes moist Neck exam: Present: normal inspection, full ROM. Absent: tenderness, meningismus, lymphadenopathy Respiratory exam: Present: normal lung sounds bilaterally. Absent: respiratory distress, wheezes, rales, rhonchi, stridor Cardiovascular Exam: Present: regular rate, normal rhythm, normal heart sounds. Absent: systolic murmur, diastolic murmur, rubs, gallop, clicks Skin exam: Present: rash (Diffuse rash upper and lower extremity along with the face there is papular to vesicular rash with excoriations and some linear line.) Course Vital Signs 04/28/22 08:59 Temperature 98.3 F Pulse Rate 76 Respiratory 18 Rate Blood Pressure 153/96 O2 Sat by Pulse 95 Oximetry Medical Decision Making - Medical Decision Making 67-year-old male presented for rash. Patient has contact dermatitis poison maddie contact. Patient will be discharged on antihistamines, steroids. Patient states he is well-controlled diabetic did inform that steroids will increase his blood glucose and patient to closely monitor patient agrees to plan. Disposition Clinical Impression: Contact dermatitis Disposition: HOME SELF-CARE Condition: Stable Instructions (If sedation given, give patient instructions): Poison Maddie (ED) Additional Instructions: Please monitor your blood sugar closely. Please return to the Emergency Department if symptoms worsen or any other concerns. Prescriptions: predniSONE 10 mg PO DIRECTED #30 tab Is patient prescribed a controlled substance at d/c from ED?: No Referrals: Ld Peña MD [Primary Care Provider] - 1-2 days Time of Disposition: 09:38
== END 2022-04-28 09:46 | disposition home or self-care (01) ==
LOC: EC 08:58
DX: L23.9 Allergic contact dermatitis, unspecified cause (principal); E11.9 Type 2 diabetes mellitus without complications; I10 Essential (primary) hypertension; M19.90 Unspecified osteoarthritis, unspecified site; E78.5 Hyperlipidemia, unspecified; Z88.8 Allergy status to other drugs, medicaments and biological substances; Z88.0 Allergy status to penicillin; Z79.84 Long term (current) use of oral hypoglycemic drugs; Z87.891 Personal history of nicotine dependence
CPT/HCPCS: 99283; 96372; J2930

== ENCOUNTER → 2022-05-15 | Outpatient (CLI) | payer MEDICARE ==
--- NOTE | 2022-05-15 12:21 | NM ---
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 TECHNIQUE: After the intravenous administration of 10.3 mCi Tc 99m Sestamibi - Rest images obtained 45 minutes post injection. The patient exercised using a KASI protocol and 1 minute prior to peak exercise was injected with 27.5 mCi Tc 99m Sestamibi - Stress images obtained 15 minutes post injecti on. FINDINGS: Targeted heart rate (129 BPM) was achieved during performance of the study. Heart rate achieved was 1 34 BPM. Total exercise time 10 minutes 27 seconds. Review of stress and rest SPECT images demonstrate s decreased perfusion at the apex of the heart and basal inferior wall on rest. This does not persist on stress. Findings suggest attenuation artifact. No distinct perfusion abnormality. Gated analysis shows normal wall motion with an estimated left ventricular ejection fraction of 74 %. TID calculat ed at 0.96, within normal limits. IMPRESSION: No scintigraphic evidence for reversible ischemia
--- NOTE | 2022-05-15 13:46 | CA ---
Exercise Stress Test Report Name: Kwasi Rico Exam Date: 05/15/2022 09:37 Exam Location: [place] Stress Ht (in): 69 Wt (lb): 200 BSA: 2.07 Ordering Phys: Ld Devi MD Referring Phys: LD DEVI,, Technologist: Jeovanny Desai Age: 67 Gender: M : 1955 Procedure CPT: Indications: I25.10 ATHSCL HEART DISEASE OF [place] CORONARY ICD-10 Codes: Patient History: Medications: SEE LIST Meds past 24 hrs: Pretest Chest Pain: STRESS TEST Steven Protocol Exercise Duration (min:sec): 10:[address] Depressions (mm): Angina Score: Gonzalez Score: Resting HR (bpm): 59 Peak HR (bpm): 134 Resting BP (mmHg): 155 / 87 Peak BP (mmHg): 219 / 95 MPHR: 152 Target HR: 129 % MPHR: 88 METS: 12.1 Total Dose: Peak Dose: Atropine: Double Product: 49727 BP Response: Stress Termination: Reached target heart rate Stress Symptoms: NO SYMPTOMS Stress Summary: ECG ANALYSIS Resting ECG: Stress ECG: CONCLUSIONS Baseline 159 beats a minute, Baseline blood pressure 155/87 mmHg Patient excised in a Steven protocol for 10 minutes achieving a peak heart rate of 134 beats a minute Hypertensive response to exercise Blood pressure 219/95 mmHg There is no ECG is for ischemia No arrhythmias noted other than very occasional PVCs Dr. Binu Trejo MD (Electronically Signed) Final Date: 15 May 2022 13:45
== END | disposition home or self-care (01) ==
LOC: RADNMMAIN 08:06
PROVIDERS: ATTEND Internal Medicine
DX: Z12.2 Encounter for screening for malignant neoplasm of respiratory organs (principal); I25.10 Atherosclerotic heart disease of native coronary artery without angina pectoris
CPT/HCPCS: 93017; 78452; A9500

== ENCOUNTER → 2022-05-16 | Outpatient (CLI) | payer MEDICARE ==
--- NOTE | 2022-05-16 09:32 | CTL ---
EXAMINATION TYPE: CT Low Dose Lung DATE OF EXAM ORDERED: 05/16/2022 COMPARISON: 05/15/2021 HISTORY: . Low Dose CT Lung Screening CT DLP: 122.[address] CTDI: 3.3 mGy IV CONTRAST USED: None. SCREENING VISIT: Second COMPARISON: None. TECHNIQUE: Low dose computed tomography scan was performed through the chest at 1 millimeter thick se ctions and reconstructed images in the coronal plane at [address] DIAGNOSTIC QUALITY: Satisfactory FINDINGS: LUNG NODULES: There are a few stable scattered sub-4 mm pulmonary nodules seen bilaterally. No nodule s greater than 6 mm. No new nodules seen. LUNGS: COPD: Severity: None Fibrosis: Severity:None Lymph nodes: None Other findings: None RIGHT PLEURAL SPACE: Effusion: None Calcification: None Thickening: None Pneumothorax: None LEFT PLEURAL SPACE: Effusion: None Calcification: None Thickening: None Pneumothorax: None HEART: Heart Size: Mildly enlarged Coronary calcification: Mild Pericardial effusion: None OTHER FINDINGS: Upper abdomen: No significant abnormality Bony thorax: Degenerative changes Supraclavicular region: No significant abnormalityOther: No significant abnormalityI IMPRESSION: Stable scattered small pulmonary nodular densities. FOLLOW UP CT CHEST RECOMMENDATION: Follow-up screening in one year CT LUNG RAD: LUNG RAD CATEGORY 2 benign appearance or behavior
== END | disposition home or self-care (01) ==
LOC: RADCTMAIN 08:58
PROVIDERS: ATTEND Internal Medicine
DX: Z12.2 Encounter for screening for malignant neoplasm of respiratory organs (principal); Z87.891 Personal history of nicotine dependence
CPT/HCPCS: 71271

== ENCOUNTER → 2023-02-13 | Outpatient (CLI) | payer MEDICARE ==
--- NOTE | 2023-02-13 12:19 | XR ---
EXAMINATION TYPE: XR cervical spine w flex/ext DATE OF EXAM: 02/13/2023 COMPARISON: NONE HISTORY: 68-year-old male M47.812 spondylosis cervical region TECHNIQUE: 8 views FINDINGS: No predental space widening or prevertebral soft tissue swelling. Straightening of the normal cervica l lordosis. Multilevel facet and uncovertebral joint arthropathy is present. Mild to moderate disc/endplate degen erative changes especially C5-T1 levels. Trace grade 1 anterolisthesis C3-C4. Trace grade I retrolisthesis C6-C7. Trace grade 1 anterolisthesis C7-T1. These subluxations do not correct or accentuate on either flexion or extension. On the right, there is moderate to severe bony neuroforaminal narrowing at C6/C7. Mild C5-C6. On the left, moderate bony neuroforaminal narrowing C6/C7 and mild C4-C5. IMPRESSION: 1. Moderate spondylitic changes especially C5-T1 levels. 2. Degenerative grade 1 spondylolisthesis C3-C4, C6-C7, and C7-T1. Flexion and extension does not roopa w any correction or accentuation of the malalignment. 3. Moderate to severe bony neuroforaminal narrowing on the right at C6-C7. Moderate on the left at th is level.
== END | disposition home or self-care (01) ==
LOC: RADXRMAIN 10:02
PROVIDERS: ATTEND Internal Medicine
DX: M43.12 Spondylolisthesis, cervical region (principal); M47.812 Spondylosis without myelopathy or radiculopathy, cervical region; M48.02 Spinal stenosis, cervical region
CPT/HCPCS: 72052

== ENCOUNTER → 2023-03-05 | Outpatient (CLI) | payer MEDICARE ==
--- NOTE | 2023-03-05 20:12 | MR ---
EXAMINATION TYPE: MR cervical spine wo con DATE OF EXAM: 03/05/2023 COMPARISON: None HISTORY: Neck pain that radiates down right arm CONTRAST: Performed utilizing 0 mL intravenous Gadavist gadolinium contrast. TECHNIQUE: Multiplanar multiecho imaging on a 3.0 Evangelina magnet is performed through the cervical spin e. FINDINGS: The craniovertebral junction is normal. Vertebral body alignment is normal. Mild disc sp tanna narrowing is present at C6-7. C7-T1: Some left paracentral disc bulging is present at C7-T1. Correlate with left radicular symptom s. No spinal canal stenosis present. No cord contact is evident. Neural foramen appear patent.. C6-7: Mild disc space narrowing is present C6-7. Wide based disc bulge has anterior thecal sac contac t. No AP spinal canal stenosis is present. This comes in close approximation with the spinal cord wit hout deformity. Left foraminal stenosis is present. C5-6: No focal disc herniation or significant disc bulge is evident. No spinal canal stenosis or matthew ral foraminal stenosis is present. C4-5: No focal disc herniation or significant disc bulge is evident. No spinal canal stenosis or matthew ral foraminal stenosis is present. C3-4: No focal disc herniation or significant disc bulge is evident. No spinal canal stenosis or matthew ral foraminal stenosis is present. C2-3: No focal disc herniation or significant disc bulge is evident. No spinal canal stenosis or matthew ral foraminal stenosis is present. IMPRESSIONS: 1. There may be a small left paracentral disc herniation with moderate anterior thecal sac compressio n at C7-T1. Correlate with left radicular symptoms. 2. Broad-based disc bulge C6-7 in close approximation of the spinal cord without definite contact or deformity.
== END | disposition home or self-care (01) ==
LOC: RADMRIMAIN 07:32
PROVIDERS: ATTEND Internal Medicine
DX: M50.223 Other cervical disc displacement at C6-C7 level (principal); M47.812 Spondylosis without myelopathy or radiculopathy, cervical region
CPT/HCPCS: 72141

== ENCOUNTER → 2023-04-13 | Outpatient (CLI) | payer MEDICARE ==
--- NOTE | 2023-04-13 09:51 | P.PAINCN ---
History of Present Illness - Reason for Consult Consult date: 04/13/23 - History of Present Illness initial consultation visit for this 68 years old man with 4 month history of severe neck pain with radiation to the right upper extremity associated with occasional numbness and tingling sensation in is constant and increases with any activity interfere with the quality of life patient already tried pain medication ibuprofen and baclofen without any significant benefit, he trieD home exercise and massage therapy for 1 month without any significant improvement of his pain, intensity of the pain interferes with the quality of life, he denies any fever or night sweats he denies any change in the bowel movements or urination he denies any motor or sensory deficit Past Medical History Past Medical History: Diabetes Mellitus, Hearing Disorder / Deafness, Hyperlipidemia, Hypertension, Osteoarthritis (OA) Additional Past Medical History / Comment(s): VARICOSE VEINS (WEARS COMPRESSION STOCKINGS), ARTHRITIS THUMBS, SHOULDERS & HIP., TINNITUS History of Any Multi-Drug Resistant Organisms: None Reported Past Surgical History: Hernia Repair, Orthopedic Surgery Additional Past Surgical History / Comment(s): UMBILICAL HERNIA, RIGHT ACHILLES , LEFT HIP (UNKNOWN TYPE OF SURGERY) Past Anesthesia/Blood Transfusion Reactions: No Reported Reaction Past Psychological History: Anxiety, Depression Smoking Status: Former smoker Past Alcohol Use History: Daily Past Drug Use History: Marijuana - Past Family History Mother Family Medical History: Cancer Additional Family Medical History / Comment(s): LEUKEMIA, HEPATITIS C Father Family Medical History: Hypertension, Pneumonia Medications and Allergies Home Medications Medication Instructions Recorded Confirmed Type Atorvastatin [Lipitor] 80 mg PO HS 08/15/19 04/13/23 History lisinopriL [Zestril] 10 mg PO DAILY 08/15/19 04/13/23 History Baclofen 5 mg PO DAILY 04/13/23 04/13/23 History Cholecalciferol (Vitamin D3) 2,000 unit PO DAILY 04/13/23 04/13/23 History [Vitamin D3 (50 Mcg = 2000 Iu) Chew Tab] Clindamycin [Cleocin] 4 cap PO DIRECTED PRN 04/13/23 04/13/23 History Dapagliflozin Propanediol [Farxiga] 10 mg PO DAILY 04/13/23 04/13/23 History Ezetimibe [Zetia] 10 mg PO DAILY 04/13/23 04/13/23 History Fexofenadine HCl [Gretel Allergy] 180 mg PO DAILY PRN 04/13/23 04/13/23 History Ibuprofen [Motrin Ib] 400 - 800 mg PO TID PRN 04/13/23 04/13/23 History Metoclopramide HCl [Reglan] 5 mg PO TID-W/MEALS 04/13/23 04/13/23 History Omeprazole [PriLOSEC] 40 mg PO DAILY 04/13/23 04/13/23 History PARoxetine HCL [Paxil] 40 mg PO DAILY 04/13/23 04/13/23 History Semaglutide [Ozempic] 0.5 mg SQ WEEKLY 04/13/23 04/13/23 History diphenhydrAMINE [Benadryl] 25 mg PO DAILY PRN 04/13/23 04/13/23 History hydroCHLOROthiazide [Hydrodiuril] 25 mg PO DAILY 04/13/23 04/13/23 History sitaGLIPtin PHOS/metFORMIN HCL 100 - 1,000 mg PO DAILY 04/13/23 04/13/23 History [Janumet Xr 100-1,000 mg Tablet] Allergies Allergy/AdvReac Type Severity Reaction Status Date / Time Penicillins Allergy Unknown Unknown Verified 04/13/23 09:29 Childhood Physical Exam Vitals: Intake and Output 04/12/23 04/13/23 04/13/23 22:59 06:59 14:59 Other: Weight 81.647 kg Physical Examinations : -Constitutiona : Cooperative , not in acute distress . -HEENT : nech : supple , no Lymphadenopathy , normal thyroid size . : eyes : no ptosis , no icterus, no photophobia . - neurologic : Cranial nerve II to XII intact , no focal neurological deffecit . -psychatric : alert , oriented X 3 , appropriate affect , intact judgment and insight . -Lymphatic : no Lymphadenopathy . - musculoskeltal : Cervical Spine motor stregnth in the deltoid and biceps, normal right side , normal Left side motor stregnth biceps and the wrist extensors normal right side ,normal left side . motor stregnth in the triceps muscle . normal Right side , normal Left side deep tendon reflexes normal at the biceps , normal at Brachioradialis , normal at triceps. cervical facet loading test: Positive right Spurling test= positive Right , negative left. Neck distraction test= positive Right , negative left. Ester sign= positive right, negative left . Lumber spine moter stegnth lower extremities ,thigh and legs 5/5 Right side , 5/5 Left side Results Comments: MRI cervical spine= bulging disc at C7-T1 Assessment and Plan Plan: Assessment and plan=1-cervical radiculopathy. 2-cervical bulging disc disease. Patient's failled conservative treatment. Patient could benefit from cervical epidural steroid injection at C7-T1, right paramedian approach OSWESTRY disability score is 12 Time with Patient: Less than 30 PQRS Measure Charge Sheet Measure #130: Documentation of Current Meds in Medical Chart: Patient's medications documented in chart Measure #226: Tobacco Use: Screen & Cessation Intervention: Pt not a tobacco user Measure #111: Pneumonia Vaccination: Pneumococcal vaccine administered or previously received Measure #47: Advance Care Plan: Advance care planning discussed & documented, pt chose/unable to give Measure #412: Opioid Treatment Agreement: No documentation of signed opioid treatment agreement Measure #408: Opioid Therapy Follow-up Evaluation: Patient had f/u eval minimum every 3 months during opioid therapy Measure #317: Preventitive Care & Scrn High Bld Press & F/U: Normal blood pressure, f/u not required Measure #128: Body Mass Index (BMI) Screening & Follow-up: BMI documented ABOVE normal parameters - f/u documented Measure #131: Pain Assessment & Follow-up: Pain positive & plan documented, Follow-up scheduled Measure #431: Unhealthy Alcohol Use Preventative Care & Scrn: Patient not identified as an unhealthy alcohol user PQRS Narrative: Smoking Status Former smoker Home Medications: Ambulatory Orders Atorvastatin [Lipitor] 80 mg PO HS 08/15/19 lisinopriL [Zestril] 10 mg PO DAILY 08/15/19 Baclofen 5 mg PO DAILY 04/13/23 Cholecalciferol (Vitamin D3) [Vitamin D3 (50 Mcg = 2000 Iu) Chew Tab] 2,000 unit PO DAILY 04/13/23 Clindamycin [Cleocin] 4 cap PO DIRECTED PRN 04/13/23 Dapagliflozin Propanediol [Farxiga] 10 mg PO DAILY 04/13/23 Ezetimibe [Zetia] 10 mg PO DAILY 04/13/23 Fexofenadine HCl [Gretel Allergy] 180 mg PO DAILY PRN 04/13/23 Ibuprofen [Motrin Ib] 400 - 800 mg PO TID PRN 04/13/23 Metoclopramide HCl [Reglan] 5 mg PO TID-W/MEALS 04/13/23 Omeprazole [PriLOSEC] 40 mg PO DAILY 04/13/23 PARoxetine HCL [Paxil] 40 mg PO DAILY 04/13/23 Semaglutide [Ozempic] 0.5 mg SQ WEEKLY 04/13/23 diphenhydrAMINE [Benadryl] 25 mg PO DAILY PRN 04/13/23 hydroCHLOROthiazide [Hydrodiuril] 25 mg PO DAILY 04/13/23 sitaGLIPtin PHOS/metFORMIN HCL [Janumet Xr 100-1,000 mg Tablet] 100 - 1,000 mg PO DAILY 04/13/23
[2023-04-13 10:05] VITALS: BP 128/76; PULSE 68; RESP 14; TEMP 97.9
== END ==
LOC: PNWHC3 08:58
PROVIDERS: ATTEND Specialist
DX: M50.13 Cervical disc disorder with radiculopathy, cervicothoracic region (principal); M47.812 Spondylosis without myelopathy or radiculopathy, cervical region; E11.9 Type 2 diabetes mellitus without complications; I10 Essential (primary) hypertension; E78.5 Hyperlipidemia, unspecified; M19.90 Unspecified osteoarthritis, unspecified site; H91.90 Unspecified hearing loss, unspecified ear; Z87.891 Personal history of nicotine dependence; Z79.899 Other long term (current) drug therapy; Z88.0 Allergy status to penicillin; Z79.84 Long term (current) use of oral hypoglycemic drugs
CPT/HCPCS: 99211

== ENCOUNTER → 2023-06-09 | Outpatient (CLI) | payer MEDICARE ==
--- NOTE | 2023-06-10 08:46 | US ---
EXAMINATION TYPE: US carotid duplex BILAT DATE OF EXAM: 06/09/2023 COMPARISON: NONE CLINICAL INDICATION: Male, 68 years old with history of G45.9 TIA Z12.2 SCREEN LUNG CA; TECHNIQUE: Carotid duplex ultrasound examination. Indirect Doppler criteria was utilized. FINDINGS: EXAM MEASUREMENTS: RIGHT: Peak Systolic Velocity (PSV) cm/sec ----- Right CCA: 81.9 ----- Right ICA: 68.8 ----- Right ECA: 83.9 ICA/CCA ratio: 0.8 RIGHT: End Diastole cm/sec ----- Right CCA: 18.8 ----- Right ICA: 27.3 ----- Right ECA: 15.7 LEFT: Peak Systolic Velocity (PSV) cm/sec ----- Left CCA: 92.2 ----- Left ICA: 64.2 ----- Left ECA: 93.9 ICA/CCA ratio: 0.7 LEFT: End Diastole cm/sec ----- Left CCA: 20.1 ----- Left ICA: 23.2 ----- Left ECA: 18.5 VERTEBRALS (direction of flow): Right Vertebral: Antegrade Left Vertebral: Antegrade Rhythm: Normal No significant stenosis IMPRESSION: No evidence for hemodynamically significant stenosis. Criteria for Assigning % of Stenosis / Diameter reduction (Estimation based on the indirect measurements of the internal carotid artery velocities (ICA PSV). 1. Normal (no stenosis)=ICA PSV < 125 cm/s: ratio < 2.0: ICA EDV<40 cm/s. 2. Less than 50% stenosis=ICA PSV < 125 cm/s: ratio < 2.0: ICA EDV<40 cm/s. 3. 50 to 69% stenosis=ICA PSV of 125 to 230 cm/s: ration 2.0 ? 4.0: ICA EDV 40-100 cm/s. 4. Greater than 70% stenosis to near occlusion= ICA PSV > 230 cm/s: ratio > 4.0: ICA EDV > 100 cm/s. 5. Near occlusion= ICA PSV velocities may be low or undetectable: variable ratio and ICA EDV. 6. Total occlusion=unable to detect flow.
== END | disposition home or self-care (01) ==
LOC: RADUSWWP 16:16
PROVIDERS: ATTEND Internal Medicine
DX: G45.9 Transient cerebral ischemic attack, unspecified (principal); Z12.2 Encounter for screening for malignant neoplasm of respiratory organs; Z87.891 Personal history of nicotine dependence
CPT/HCPCS: 93880

== ENCOUNTER → 2023-07-02 | Outpatient (CLI) | payer MEDICARE ==
[2023-07-02 13:49] VITALS: BP 138/86; PULSE 70; RESP 16; TEMP 98.2
--- NOTE | 2023-07-02 13:55 | P.PAINPG ---
Objective - Vital Signs Vital signs: Intake & Output 07/01/23 07/02/23 07/02/23 18:59 06:59 18:59 Weight 81.647 kg PQRS Measure Charge Sheet Comment: A 68 yr old male w at side with a history of severe and chronic neck pain x 6 mo secondary to cervical DDD and spondylosis with facet arthropathy without myelopathy presents today for evaluation s/p BL MBB C4-C5, C5-C6 #1. Pt states he experienced 100 % pain relief x 1 day s/p procedure. Pain level is provoked at 6 /10 in intensity, constant, localized axially in the cervical spine, sharp in character w shooting towards the RUE. Pain is provoked by lifting. Pain is alleviated with injections, medications, physician guided home exercises/ stretches w massages 3 times weekly x 1 mo in Feb 2023, repositioning and rest. Oswestry axial pain score at 22. Interventional pain procedures completed include JARED C7-T1 x1, BL MBB C4-C6 x1 Patient is currently on Baclofen, Ibu Patient denies any side effects of the medication(s), denies excessive drowsiness or sleepiness, denies suicidal ideation and reports that the current pain medication is helping to control the pain and improve activities of daily living. Patient denies any motor or sensory deficits. Patient denies any fever or night sweats, denies any change in the bowel movements or urination. Physical Examination: -Constitutional: Cooperative. Not in acute distress . - Neurologic: Cranial nerve II to XII intact. No focal neurological defic its. - Psychatric: Alert & oriented x 3. Matching mood & appropriate affect. Judgment and insight intact. - Musculoskeletal: Cervical spine: Muscle bulk/ tone/ strength in the bilateral upper extremities normal Vertebral body tenderness to palpation over Spurling test positive Distraction test positive Facet loading test positive TTP over BL C4-C5, C5-C6 Thoracic spine Muscle bulk / tone/ strength in the bilateral paraspinal muscles normal Vertebral body tender to palpation over Facet loading test positive TTP Lumbar spine: Motor bulk/ tone/ strength lower extremities , thigh and legs : 5/5 Deep tendon reflexes : Normal Knee Jerk. Normal Ankle Jerk . Vertebral body tenderness to palpation over Lumbar Facet Loading Test positive Straight Leg Raise: positive at 30 degrees right side/ left side Gaenslen's Test positive Sacral spine : Severe tenderness over the Sacroiliac joint: right side / left side Range of motion: Flexion of the lumbar spine <60 degrees Range of motion: Extension of the lumbar spine <20 degrees Gaenslen's Test positive R / L Rojas test: positive right side / left side Thigh Thrust Test positive R / L Sacral Thrust Test positive R/ L Assessment and plan: Chronic neck pain secondary to cervical DDD, spondylosis with facet arthropathy without myelopathy Recommendation of BL facet blocks of the medial branches C4-C5, C5-C6 #2. May need a series of injections, up until RFA, for optimal pain relief. Risks, benefits of procedure discussed and pt verbalized understanding. Admits to anticoagulant use or medical history of diabetes. Protocol for discontinuation/ continuation of medications andrew procedure discussed. Minimal anesthesia provided, if clinically indicated, consisting of Versed and Fentanyl. All questions answered. I have spent less than 30 minutes on patient care today. Dr Simental was available by phone for the evaluation of this patient. The time was used to review the medical records including relevant urine studies and Prescription history (MAPs), review of the available imaging, evaluation and examination of the patient, coordination of care with the medical staff and if applicable referring physicians, as well as creation of the medical record PQRS Narrative: Smoking Status Former smoker Hx Alcohol Use (MH) Yes: 3-4 oz of Liqour daily Home Medications: Ambulatory Orders Atorvastatin [Lipitor] 80 mg PO HS 08/15/19 lisinopriL [Zestril] 10 mg PO DAILY 08/15/19 Baclofen 5 mg PO DAILY PRN 04/13/23 Cholecalciferol (Vitamin D3) [Vitamin D3 (50 Mcg = 2000 Iu) Chew Tab] 2,000 unit PO DAILY 04/13/23 Dapagliflozin Propanediol [Farxiga] 10 mg PO DAILY 04/13/23 Ezetimibe [Zetia] 10 mg PO DAILY 04/13/23 Fexofenadine HCl [Gretel Allergy] 180 mg PO DAILY PRN 04/13/23 Ibuprofen [Motrin Ib] 400 - 800 mg PO TID PRN 04/13/23 Metoclopramide HCl [Reglan] 5 mg PO TID-W/MEALS PRN 04/13/23 Omeprazole [PriLOSEC] 40 mg PO DAILY 04/13/23 PARoxetine HCL [Paxil] 40 mg PO DAILY 04/13/23 Semaglutide [Ozempic] 0.5 mg SQ MO 04/13/23 diphenhydrAMINE [Benadryl] 25 mg PO DAILY PRN 04/13/23 hydroCHLOROthiazide [Hydrodiuril] 25 mg PO DAILY 04/13/23 sitaGLIPtin PHOS/metFORMIN HCL [Janumet Xr 100-1,000 mg Tablet] 100 - 1,000 mg PO DAILY 04/13/23 Fluticasone Propionate [Flonase Allergy Relief] 2 spray EA NOSTRIL DAILY 05/06/23 Controlled Substance Measures - Controlled Substance Measures Is patient prescribed a controlled substance at discharge?: No
== END ==
LOC: PNWHC3 13:21
PROVIDERS: ATTEND Specialist
DX: M50.321 Other cervical disc degeneration at C4-C5 level (principal); M50.322 Other cervical disc degeneration at C5-C6 level; M47.812 Spondylosis without myelopathy or radiculopathy, cervical region; G89.29 Other chronic pain; Z87.891 Personal history of nicotine dependence; Z88.0 Allergy status to penicillin
CPT/HCPCS: 99211

== ENCOUNTER 2023-07-16 08:14 | Day surgery (SDC) | payer MEDICARE ==
[~2023-07-16 08:14] MED LIST changes: -ACETAMINOPHEN TAB 500 MG TAB PO ONE; -CLINDAMYCIN 900 MG in DEXTROSE 5% IN WATER 50 ML IVPB ONE; -DEXAMETHASONE SOD PHOSPHATE 10 MG/ML 1 ML VIAL IV ONE; -GABAPENTIN 300 MG CAP PO ONE; -HYDROmorphone 0.5 MG/0.5 ML SYRINGE IVP PRN; +LACTATED RINGERS 1,000 ML IV SCH; -MIDAZOLAM 2 MG/2 ML VIAL IV PRN; -ONDANSETRON 4 MG/2 ML VIAL IVP ONE; -TRANEXAMIC ACID 1,000 MG in SODIUM CHLORIDE 0.9% 100 ML IVPB ONE
[2023-07-16 09:14] LABS: Glucose,Whole Blood 112 mg/dL (70-110)
[2023-07-16 09:35] VITALS: RESP 16; TEMP 97
[2023-07-16] MEDS ORDERED: MIDAZOLAM 2 MG/2 ML VIAL ONE (09:46)
[2023-07-16] MEDS ORDERED: ROPIVACAINE 5MG/ML 20ML VIAL ONE (09:46)
[2023-07-16] MEDS ORDERED: IV FLUID CONTINUATION 800 ML IV ONE (10:26)
--- NOTE | 2023-07-16 10:33 | FL ---
Fluoroscopy History: FACET BLOCK Bilateral cervical facet injection with Dr. Reich. 1 min 16 sec fluoro time. 2 images saved. .25090 D AP.
[2023-07-16 10:53] VITALS: BP 132/71; PULSE 77
--- NOTE | 2023-07-16 12:07 | P.PCN ---
Date of Procedure: 07/16/23 Description of Procedure: Preprocedure diagnosis. Cervical facet joint arthropathy, cervical spine sp ondylosis, cervical degenerative disc disease. Postprocedure diagnosis. As above. Procedure done. Bilateral C4-5, C5-6 facet joint (C4, C5, C6 medial branch of dorsal ramus) diagnostic injection with local anesthetics under fluoroscopic guidance. Anesthesia. IV sedation of Versed 2milligram, fentanyl 50micrograms given in OR . Continuous pulse ox, EKG, blood pressure and verbal communication was maintained with the patient in OR. Blood loss. None. Indication. Patient has got the diagnoses of cervical spondylolysis, facet joint arthropathy with neck pain. Discussed with the patient procedure, alternatives, complications including infection, bleeding, nerve damage, paralysis all of which could be permanent. Patient understands and all questions are answered. Procedure note. After getting consent patient in OR in prone position. Back of the neck was prepped with chlorhexidine and draped in sterile fashion. After injecting 3 mL of plain 1% lidocaine subcutaneously, a 22-gauge spinal needle was introduced under tunnel vision of the fluoroscope AP view at the waist of the articular pillar (lateral mass) at C4 vertebral level. In the lateral view of the fluoroscope it was confirmed that the tip of the needle stayed within the dorsal half of the articular pillar (lateral mass). So, right C4-5 facet joint was targeted by blocking right C4 and C5 medial branch, right C5-6 facet joint was targeted by blocking right C5 and C6 medial branch. In exactly the same way , after subcutaneous injection of lidocaine, 22-gauge spinal needle is introduced under tunnel vision of the fluoroscope AP view at the waist of the articular pillar (lateral mass) at C5, C6 vertebral level. In the lateral view of the fluoroscope it was confirmed that the tip of the needle stayed within the dorsal half of the articular pillar (lateral mass). At each needle, 0.5 mL of 0.5% ropivacaine preservative-free was injected. In exactly same way left C4-5, C5-6 facet joints were targeted by blocking left C4, C5, C6 medial branch of dorsal ramus. After the procedure needle was taken out and bandage was applied. Disposition. Patient tolerated the procedure well. No complication. Disc harged home in stable condition.
== END 2023-07-16 11:03 | disposition home or self-care (01) ==
LOC: ORPAIN 08:14
PROVIDERS: ATTEND Pain Medicine Interventional Pain Medicine
DX: M47.812 Spondylosis without myelopathy or radiculopathy, cervical region (principal); M50.322 Other cervical disc degeneration at C5-C6 level; E11.9 Type 2 diabetes mellitus without complications; I10 Essential (primary) hypertension; Z79.84 Long term (current) use of oral hypoglycemic drugs; Z79.899 Other long term (current) drug therapy; Z88.0 Allergy status to penicillin
CPT/HCPCS: 64490; 64491 ×2; 99152; 99153; J2250; J2795

== ENCOUNTER → 2023-08-13 | Outpatient (CLI) | payer MEDICARE ==
[2023-08-13 14:45] VITALS: BP 135/86; PULSE 93; RESP 16
--- NOTE | 2023-08-13 15:12 | P.PAINPG ---
Objective - Vital Signs Vital signs: Intake & Output 08/12/23 08/13/23 08/13/23 18:59 06:59 18:59 Weight 79.379 kg PQRS Measure Charge Sheet Comment: A 68 yr old male w at side with a history of severe and chronic neck pain x 6 mo secondary to cervical DDD and spondylosis with facet arthropathy without myelopathy presents today for evaluation s/p BL MBB C4-C5, C5-C6 #2. Pt states he experienced 100 % pain relief x 1 wk s/p procedure. Pain level is provoked at 2 /10 in intensity, intermittent, localized axially in the cervical spine, predominantly axial, sharp in character without occasional shooting pain towards the RUE. Pain is provoked by lifting. Pain is alleviated with injections, medications, physician guided home exercises/ stretches w massages 3 times weekly x 1 mo in Feb 2023, repositioning and rest. Cervical disability pain score at 20. Interventional pain procedures completed include JARED C7-T1 x1, BL MBB C4-C6 x2 Patient is currently on Baclofen, Ibu Patient denies any side effects of the medication(s), denies excessive drowsine ss or sleepiness, denies suicidal ideation and reports that the current pain medication is helping to control the pain and improve activities of daily living. Patient denies any motor or sensory deficits. Patient denies any fever or night sweats, denies any change in the bowel movements or urination. Physical Examination: -Constitutional: Cooperative. Not in acute distress . - Neurologic: Cranial nerve II to XII intact. No focal neurological deficits. - Psychatric: Alert & oriented x 3. Matching mood & appropriate affect. Judgment and insight intact. - Musculoskeletal: Cervical spine: Muscle bulk/ tone/ strength in the bilateral upper extremities normal Vertebral body tenderness to palpation over Spurling test positive Distraction test positive Facet loading test positive TTP over BL C4-C5, C5-C6 Thoracic spine Muscle bulk / tone/ strength in the bilateral paraspinal muscles normal Vertebral body tender to palpation over Facet loading test positive TTP Lumbar spine: Motor bulk/ tone/ strength lower extremities , thigh and legs : 5/5 Deep tendon reflexes : Normal Knee Jerk. Normal Ankle Jerk . Vertebral body tenderness to palpation over Lumbar Facet Loading Test positive Straight Leg Raise: positive at 30 degrees right side/ left side Gaenslen's Test positive Sacral spine : Severe tenderness over the Sacroiliac joint: right side / left side Range of motion: Flexion of the lumbar spine <60 degrees Range of motion: Extension of the lumbar spine <20 degrees Gaenslen's Test positive R / L Rojas test: positive right side / left side Thigh Thrust Test positive R / L Sacral Thrust Test positive R/ L Assessment and plan: Chronic neck pain secondary to cervical DDD, spondylosis with facet arthropathy without myelopathy Will manage residual pain and may RTC on an as needed basis. All questions answered. I have spent less than 30 minutes on patient care today. Dr Simental was available by phone for the evaluation of this patient. The time was used to review the medical records including relevant urine studies and Prescription history (MAPs), review of the available imaging, evaluation and examination of the patient, coordination of care with the medical staff and if applicable referring physicians, as well as creation of the medical record PQRS Narrative: Smoking Status Former smoker Hx Alcohol Use (MH) Yes: 3-4 oz of Liqour daily Home Medications: Ambulatory Orders Atorvastatin [Lipitor] 80 mg PO HS 08/15/19 lisinopriL [Zestril] 10 mg PO DAILY 08/15/19 Baclofen 5 mg PO DAILY PRN 04/13/23 Cholecalciferol (Vitamin D3) [Vitamin D3 (50 Mcg = 2000 Iu) Chew Tab] 2,000 unit PO DAILY 04/13/23 Dapagliflozin Propanediol [Farxiga] 10 mg PO DAILY 04/13/23 Ezetimibe [Zetia] 10 mg PO DAILY 04/13/23 Fexofenadine HCl [Gretel Allergy] 180 mg PO DAILY PRN 04/13/23 Ibuprofen [Motrin Ib] 400 - 800 mg PO TID PRN 04/13/23 Metoclopramide HCl [Reglan] 5 mg PO TID-W/MEALS PRN 04/13/23 Omeprazole [PriLOSEC] 40 mg PO DAILY 04/13/23 PARoxetine HCL [Paxil] 40 mg PO DAILY 04/13/23 Semaglutide [Ozempic] 0.25 mg SQ MO 04/13/23 hydroCHLOROthiazide [Hydrodiuril] 25 mg PO DAILY 04/13/23 sitaGLIPtin PHOS/metFORMIN HCL [Janumet Xr 100-1,000 mg Tablet] 100 - 1,000 mg PO DAILY 04/13/23 Fluticasone Propionate [Flonase Allergy Relief] 2 spray EA NOSTRIL DAILY 05/06/23 B 12 (Unk) 1,000 mcg PO DAILY 07/14/23 Folica Acid 400 mcg PO DAILY 07/14/23 Controlled Substance Measures - Controlled Substance Measures Is patient prescribed a controlled substance at discharge?: No
== END ==
LOC: PNWHC3 13:56
PROVIDERS: ATTEND Anesthesiology
DX: M50.321 Other cervical disc degeneration at C4-C5 level (principal); M50.322 Other cervical disc degeneration at C5-C6 level; M47.812 Spondylosis without myelopathy or radiculopathy, cervical region; G89.29 Other chronic pain; Z88.0 Allergy status to penicillin; Z87.891 Personal history of nicotine dependence
CPT/HCPCS: 99211

== ENCOUNTER → 2023-08-18 | Outpatient (CLI) | payer MEDICARE ==
--- NOTE | 2023-08-18 20:37 | MR ---
EXAMINATION TYPE: MR lumbar spine wo/w con DATE OF EXAM: 08/18/2023 COMPARISON: NONE HISTORY: 68-year-old male M47.816, spondylosis, Lower back pain, radiates into bilateral outer thighs , hx fall. Technique: Multiplanar, multisequence images of the lumbar spine were obtained before and after admin istration of 8 mL intravenous Gadavist gadolinium contrast. FINDINGS: Vertebral body heights are preserved. There is partial interbody ankylosis in the visualized lower th oracic spine. Hypertrophic facet arthropathy with degenerative grade 1 retrolisthesis L1-L2, L2-L3, L3-L4. There is prominent edematous change within the L4 vertebral body with the horizontally oriented fract ure line noted at the superior endplate. Mild superior endplate depression but with overall preserved vertebral body height. No retropulsion into the ventral spinal canal. Additional edema at L2-L3 more pronounced within the L2 vertebral body below without discrete fractur e line seen at this time. Both of these areas show corresponding postcontrast enhancement. Conus medullaris is normal. 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 Superimposed mild to moderate degenerative disc disease with desiccated and bulging discs as well as ligamentum flavum thickening and hypertrophic facet arthropathy. There is overall moderate spinal canal stenosis at L3-L4 and mild at L4-L5. Additional impressions onto the ventral thecal sac at multiple levels due to bulging disc. On the left, changes result in moderate to severe neuroforaminal stenosis at L4-L5. Moderate at L3-L4 and L5-S1. Mild L2-L3. On the right, changes as noted moderate to severe neuroforaminal stenosis at L5-S1 and L4-L5. Moderat e at L3-L4. Mild at L2-L3. 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 IMPRESSION: 1. Superior endplate fracture of L4 with a horizontally oriented fracture line noted. There is mild s uperior endplate deformity but overall preserved vertebral body height. The presence of marrow edema and postcontrast enhancement suggest an acute to subacute injury. 2. Edema and postcontrast enhancement also noted within the L2 vertebral body. Early underlying verte bral body fracture probably involving the inferior endplate is suspected. Again, overall vertebral alaina dy height is maintained at this time. 3. Moderate multilevel spondylotic change with degenerative grade 1 retrolisthesis at L1-L2, L2-L3, a nd L3-L4. 4. Changes result in overall moderate spinal canal stenosis at L3-L4 and mild at L4-L5. 5. Variable neuroforaminal stenosis as outlined above.
== END | disposition home or self-care (01) ==
LOC: RADMRIMAIN 10:28
PROVIDERS: ATTEND Internal Medicine
DX: S32.040A Wedge compression fracture of fourth lumbar vertebra, initial encounter for closed fracture (principal); M47.26 Other spondylosis with radiculopathy, lumbar region; R60.0 Localized edema; M48.061 Spinal stenosis, lumbar region without neurogenic claudication; M43.16 Spondylolisthesis, lumbar region
CPT/HCPCS: 72158; A9585

== ENCOUNTER → 2024-05-30 | Outpatient (CLI) | payer MEDICARE ==
--- NOTE | 2024-05-30 10:23 | CTL ---
EXAMINATION TYPE: CT Low Dose Lung DATE OF EXAM ORDERED: 05/30/2024 HISTORY: History of nicotine dependence, 45 pack-year history, quit smoking 10 years ago. Lung cancer screening CT DLP: 105.[address] CTDI: 2.90 mGy Automated exposure control for dose reduction was used. SCREENING VISIT: Fourth screening visit COMPARISON: CT Low Dose Lung 05/27/2023, 05/16/2022, 05/15/2021 TECHNIQUE: Low dose computed tomography scan was performed through the chest at 1 mm thick sections a nd reconstructed images in multiple planes at 1 mm and [address] DIAGNOSTIC QUALITY: Satisfactory FINDINGS: Nodules: Few stable scattered 4 mm or less pulmonary nodules seen bilaterally. No new or enlarging pulmonary n odules. Examples include a right lower lobe 3 mm pulmonary nodule (series 6, image 46), left upper lo be 3.3 mm pulmonary nodule (series 6, image 12), left upper lobe 2.2 mm pulmonary nodule (series 6, i mage 25), anterior right middle lobe 3.9 mm pulmonary nodule (series 6, image 38). LUNGS: COPD: Severity: None Fibrosis: Severity: None Lymph nodes: None Other findings: Right lower lobe pulmonary cyst redemonstrated. RIGHT PLEURAL SPACE: Effusion: None Calcification: None Thickening: None Pneumothorax: None LEFT PLEURAL SPACE: Effusion: None Calcification: None Thickening: None Pneumothorax: None HEART: Heart Size: Normal Coronary Calcification: Small Pericardial Effusion: None OTHER FINDINGS: Upper abdomen: None Bony thorax: Right shoulder arthroplasty changes. Multilevel degenerative changes of the visualized s pine. Partial anterior fusion of the T10-T12 disc spaces. Supraclavicular region: None Other: None IMPRESSION: Stable small scattered pulmonary nodules measuring less than 4 mm. No new or enlarging pu lmonary nodules. CT LUNG RAD AND CT CHEST RECOMMENDATION: Lung-Rad 2 Benign Appearance or Behavior: Continue annual sc reening with LDCT in 12 months. S Modifier (other clinically significant findings): None [facility], , 05/30/2024 10:21 AM
== END | disposition home or self-care (01) ==
LOC: RADCTMAIN 09:54
PROVIDERS: ATTEND Internal Medicine
DX: Z12.2 Encounter for screening for malignant neoplasm of respiratory organs (principal); Z87.891 Personal history of nicotine dependence; R91.8 Other nonspecific abnormal finding of lung field
CPT/HCPCS: 71271

== ENCOUNTER → 2024-10-26 | Outpatient (CLI) | payer MEDICARE ==
--- NOTE | 2024-10-26 15:31 | US ---
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 Additional History: .... TECHNIQUE: Grayscale, color Doppler and spectral Doppler evaluation of the bilateral carotid systems and vertebral arteries. Indirect Doppler criteria was utilized. FINDINGS: EXAM MEASUREMENTS: RIGHT: Peak Systolic Velocity (PSV) cm/sec ----- Right CCA: 104.8 ----- Right ICA: 87.8 ----- Right ECA: 78.8 ICA/CCA ratio: 0.8 RIGHT: End Diastole cm/sec ----- Right CCA: 24.1 ----- Right ICA: 19.7 ----- Right ECA: 11.5 LEFT: Peak Systolic Velocity (PSV) cm/sec ----- Left CCA: 84.5 ----- Left ICA: 72.4 ----- Left ECA: 83.1 ICA/CCA ratio: 0.9 LEFT: End Diastole cm/sec ----- Left CCA: 17.5 ----- Left ICA: 26.3 ----- Left ECA: 0.0 VERTEBRALS (direction of flow): Right Vertebral: Antegrade Left Vertebral: Antegrade Rhythm: Normal SOFTWARE TEST DEVELOPER NOTES: No elevated velocities. Plaque seen distal right CCA and left bulb. Color Doppler imaging shows patency with blood flow throughout the carotid artery. Spectral waveforms are within normal limits. IMPRESSION: Right: Less than 50% stenosis of the carotid bifurcation. Left: Less than 50% stenosis of the carotid bifurcation. Criteria for Assigning % of Stenosis / Diameter reduction (Estimation based on the indirect measurements of the internal carotid artery velocities (ICA PSV). 1. Normal (no stenosis)=ICA PSV < 125 cm/s: ratio < 2.0: ICA EDV<40 cm/s. 2. Less than 50% stenosis=ICA PSV < 125 cm/s: ratio < 2.0: ICA EDV<40 cm/s. 3. 50 to 69% stenosis=ICA PSV of 125 to 230 cm/s: ration 2.0 ? 4.0: ICA EDV 40-100 cm/s. 4. Greater than 70% stenosis to near occlusion= ICA PSV > 230 cm/s: ratio > 4.0: ICA EDV > 100 cm/s. 5. Near occlusion= ICA PSV velocities may be low or undetectable: variable ratio and ICA EDV. 6. Total occlusion=unable to detect flow. [facility], , 10/26/2024 3:29 PM
--- NOTE | 2024-10-27 12:00 | CA ---
Transthoracic Echo Report Name: Kwasi Rico Age: 69 Gender: M : 1955 Exam Date: 10/26/2024 15:15 Exam Location: [facility] Ht (in): 68 Wt (lb): 182 Ordering Physician: Ld Peña MD Attending/Referring Phys: Ld Peña MD Audio/Video Technician Lida Short RDCS Procedure CPT: Indications: I65.23 carotid stenosis Cardiac Hx: Technical Quality: Good Contrast 1: Total Dose (mL): Contrast 2: Total Dose (mL): MEASUREMENTS (Male / Female) Normal Values 2D ECHO LV Diastolic Diameter PLAX 4.6 cm 4.2 - 5.9 / 3.9 - 5.3 cm LV Systolic Diameter PLAX 3.3 cm IVS Diastolic Thickness 1.0 cm 0.6 - 1.0 / 0.6 - 0.9 cm LVPW Diastolic Thickness 1.1 cm 0.6 - 1.0 / 0.6 - 0.9 cm LV Relative Wall Thickness 0.5 LVOT Diameter 2.2 cm LV Diastolic Volume MOD BP 114.2 cm??? 67 - 155 / 56 - 104 cm??? LV Systolic Volume MOD BP 46.2 cm??? 22 - 58 / 19 - 49 cm??? LV Ejection Fraction MOD BP 59.6 % >= 55 % LV Cardiac Index MOD BP 2746.4 cm???/min???m??? LV Diastolic Volume MOD 4C 117.0 cm??? LV Systolic Volume MOD 4C 43.4 cm??? LV Ejection Fraction MOD 4C 62.9 % LV Cardiac Index MOD 4C 2967.7 cm???/min???m??? LV Diastolic Length 4C 8.3 cm LV Systolic Length 4C 6.9 cm LV Diastolic Volume MOD 2C 108.9 cm??? LV Systolic Volume MOD 2C 45.2 cm??? LV Ejection Fraction MOD 2C 58.5 % LV Cardiac Index MOD 2C 2570.2 cm???/min???m??? LV Diastolic Length 2C 8.5 cm LV Systolic Length 2C 7.5 cm LA Volume 56.6 cm??? 18 - 58 / 22 - 52 cm??? LA Volume Index 28.2 cm???/m??? 16 - 28 cm???/m??? DOPPLER AV Peak Velocity 163.3 cm/s AV Peak Gradient 10.7 mmHg AV Mean Velocity 117.7 cm/s AV Mean Gradient 6.0 mmHg AV Velocity Time Integral 30.2 cm LVOT Peak Velocity 120.5 cm/s LVOT Peak Gradient 5.8 mmHg LVOT Velocity Time Integral 19.5 cm LVOT Stroke Volume 71.4 cm??? LVOT Stroke Volume Index 36.3 ml/m??? LVOT Cardiac Index 2879.0 cm???/min???m??? AV Area Cont Eq vti 2.4 cm??? AV Area Cont Eq pk 2.7 cm??? MV Area PHT 3.2 cm??? Mitral E Point Velocity 51.6 cm/s Mitral A Point Velocity 61.0 cm/s Mitral E to A Ratio 0.8 MV Deceleration Time 234.1 ms TR Peak Velocity 259.4 cm/s TR Peak Gradient 26.9 mmHg Right Atrial Pressure 5.0 mmHg Pulmonary Artery Systolic Pressu 31.9 mmHg Right Ventricular Systolic Press 31.9 mmHg PV Peak Velocity 70.1 cm/s PV Peak Gradient 2.0 mmHg FINDINGS Left Ventricle Left ventricular ejection fraction is estimated at 55-60 %. Left ventricular cavity size normal. Left ventricular wall thickness normal. No obvious regional wall motion abnormalities. Right Ventricle Normal right ventricular size and function. Right ventricular systolic pressure within normal limits. Right Atrium Normal right atrial size. Left Atrium Mildly increased left atrial area. Mitral Valve Structurally normal mitral valve. No evidence for mitral valve prolapse. No mitral stenosis. Trace mitral regurgitation. Aortic Valve Trileaflet aortic valve. Thickened aortic valve without stenosis. No aortic valve stenosis or regurgitation. Tricuspid Valve Structurally normal tricuspid valve. No tricuspid stenosis. Mild tricuspid regurgitation. Pulmonic Valve Structurally normal pulmonic valve. No pulmonic stenosis. Mild pulmonic regurgitation. Pericardium No pericardial effusion. Aorta Normal size aortic root and proximal ascending aorta. CONCLUSIONS Left ventricular ejection fraction is estimated at 55-60 %. No obvious regional wall motion abnormalities. Normal right ventricular size and function. Mildly increased left atrial area. No significant valve dysfunction. Previewed by: Dr Josh Santos (Electronically Signed) Final Date: 27 October 2024 11:59
== END | disposition home or self-care (01) ==
LOC: RADUSWWP 14:43
PROVIDERS: ATTEND Internal Medicine
DX: I25.10 Atherosclerotic heart disease of native coronary artery without angina pectoris (principal); I65.23 Occlusion and stenosis of bilateral carotid arteries; I37.1 Nonrheumatic pulmonary valve insufficiency; I07.1 Rheumatic tricuspid insufficiency
CPT/HCPCS: 82306; 93306; 93880

== ENCOUNTER → 2025-01-18 | Outpatient (CLI) | payer MEDICARE | END | disposition home or self-care (01) | LOC: LABWHC1 11:24 | PROVIDERS: ATTEND Internal Medicine | DX: E87.5 Hyperkalemia (principal) | CPT/HCPCS: 36415; 84132 ==

== ENCOUNTER → 2025-03-24 | Outpatient (CLI) | payer MEDICARE ==
--- NOTE | 2025-03-30 15:34 | MR ---
EXAMINATION TYPE: MR cspine/lspine wo/w con DATE OF EXAM: 03/24/2025 COMPARISON: CT cervical spine October 16, 2024. CT lumbar spine December 18, 2020. MRI lumbar spine Dec emb2022. MRI cervical spine March 05, 2023 HISTORY: Neck pain, headaches, Low back pain into lower extremities TECHNIQUE: Multiplanar, multisequence images of the cervical and lumbar spine are performed without and with IV contrast, utilizing 8 mL intravenous Gadobutrol FINDINGS: C-SPINE: Sagittal images of the cervical spine show the craniocervical junction to appear within normal limits . The cervical and upper thoracic spinal cord remains normal in caliber and signal. Slight levoconve x scoliotic curvature centered in the upper thoracic spine is redemonstrated. Slight grade 1 retrolis thesis C6 on C7. The vertebral body heights are normal. Mild to moderate disc space narrowing at C6- C7 level is again seen. Modic type I endplate changes anterior C6-C7 level noted. No suspicious postc ontrast enhancement. Axial images at C2-C3 level show left-sided uncovertebral facet degenerative change causing mild-to-m oderate left-sided neural foraminal narrowing. Axial images at C3-C4 level show facet degenerative changes causing mild left and moderate to advance d right-sided neural foraminal narrowing. At the C4-C5 level shows uncovertebral facet degenerative changes causing mild bilateral neural bryson inal narrowing. Axial images at C5-C6 level broad-based right paracentral disc protrusion that mildly effaces the an terior thecal sac, bilateral neural foramina are patent. Axial images at C6-C7 level shows spondylolisthesis with more prominent focal right paracentral disc protrusion effacing the anterior thecal sac and causing mild to moderate bilateral neural foraminal n arrowing. Axial images at C7-T1 level appear within normal limits. IMPRESSION: Multilevel degenerative changes are present most prominent at C6-C7 level as detailed abo ve. L-SPINE: Sagittal images of the lumbar spine show mild to moderate height loss superior L4 endplates similar t o prior MRI. Persisting grade 1 retrolisthesis L3 on L4. Multilevel disc desiccation is seen. There i s [id number] disc space narrowing with heterogeneous Modic type II endplate changes at the L2-L 3 level. The conus medullaris remains normal in position and signal ending inferior L1 level. No carson picious postcontrast enhancement. Axial images at T12/L1 level remain within normal limits. Axial images at L1-L2 levels show [id number] broad disc bulge mildly effaces the anterior theca l sac along with [id number] facet arthropathy bilaterally. Bilateral neural foramina are patent . Axial images at L2-L3 level shows spondylosis with moderate disc bulge effacing anterior thecal sac a nd mild/moderate facet arthropathy bilaterally. Bilateral neural foramina are patent. Axial images at L3-L4 levels with spondylolisthesis with moderate to advanced broad disc bulge efface s the anterior thecal sac and moderate facet arthropathy bilaterally. There is [id number] bilat eral neural foraminal narrowing seen right greater than left. Axial images at L4-L5 level show moderate broad disc bulge and moderate facet arthropathy bilaterally . There is effacement of the lateral thecal sac. There is moderate to advanced bilateral neural bryson inal narrowing seen. Axial images at L5-S1 level shows advanced facet arthropathy bilaterally. There is mild/moderate broa d disc bulge. Spinal canal is preserved. There is moderate bilateral neural foraminal narrowing seen. Sigmoid colonic diverticulosis is partially imaged. IMPRESSION: Multilevel spondylolisthesis and degenerative changes are present as detailed above. Some interval multilevel degenerative progression from most recent prior MRI is noted. [facility], , 03/30/2025 3:32 PM
== END | disposition home or self-care (01) ==
LOC: RADMRIMAIN 07:44
PROVIDERS: ATTEND Internal Medicine
DX: M47.816 Spondylosis without myelopathy or radiculopathy, lumbar region (principal); M47.812 Spondylosis without myelopathy or radiculopathy, cervical region; M43.16 Spondylolisthesis, lumbar region
CPT/HCPCS: 72156; 72158; A9585